=== PATIENT | female | born 1930 | race Caucasian/White ===

== ENCOUNTER 2017-05-08 08:26 | Inpatient (IN) | payer MEDICARE ==
[2017-05-08 09:29] LABS: % BASOPHILS 0.1 % (0.0-2.0); % EOSINOPHILS 2.8 % (0.0-5.0); % LYMPHOCYTES 16.4 % (20.0-50.0); % NEUTROPHILS 74.7 % (40.0-80.0); HEMOGLOBIN 11.4 gm/dL (11.7-16.1); MEAN CORPUSCULAR HGB CONC 32.7 pg (28.0-36.0); MEAN PLATELET VOLUME 8.2 fl; NEUTROPHILE ABSOLUTE 5.7 Th/cmm (1.8-8.0); PLATELET COUNT 395 Th/cmm (150-400); RED BLOOD COUNT 3.68 Mil/cmm (3.80-5.20); RED CELL DISTRIBUTION WIDTH 13.9 % (11.5-20.0); WHITE BLOOD COUNT 7.5 Th/cmm (4.8-10.8)
--- NOTE | 2017-05-08 09:43 | Diagnostic Imaging Report ---
CHEST X-RAY: AP view INDICATION: Pre-op, shortness of breath COMPARISON: None FINDINGS: Patient is rotated. Chronic lung changes are seen with no focal consolidation or effusions. Heart size is normal. Atherosclerosis is noted. Degenerative changes of spine are noted. IMPRESSION: Chronic lung changes and COPD. No focal consolidation identified.
[2017-05-08 09:46] LABS: INR 1.02 (0.5-1.4); PROTHROMBIN TIME (TEST) 10.6 SECONDS (9.5-11.5)
[2017-05-08 09:47] VITALS: BP 142/95
[2017-05-08 09:48] LABS: ALKALINE PHOSPHATASE 95 U/L (34-104); ANION GAP 10.1 (7.0-16.0); BILIRUBIN,TOTAL 0.5 mg/dL (0.3-1.0); BUN - UREA NITROGEN 20 mg/dL (7-25); CALCIUM SERUM 9.7 mg/dL (8.6-10.3); CARBON DIOXIDE 25.7 mEq/L (21.0-31.0); CHLORIDE 105 mEq/L (98-107); CREATININE - SERUM 0.5 mg/dL (0.6-1.2); GLUCOSE 133 mg/dL (70-105); POTASSIUM SERUM 3.8 mEq/L (3.5-5.1); SGOT 15 U/L (13-39); SGPT/ALT 8 U/L (7-52); SODIUM SERUM 137 mEq/L (136-145)
[2017-05-08] MEDS ORDERED: Midazolam 1mg/ml 2 ml vial IV ONE (10:33)
[2017-05-08] MEDS ORDERED: fentaNYL Citrate 100 mcg/2mL Vial ONE (10:34)
[2017-05-08] MEDS ORDERED: Magnesium Hydroxide (MOM) 30 mL UDC PO PRN (11:09)
[2017-05-08] MEDS ORDERED: guaiFENesin 200 MG/10 ML UDC PO PRN ×2 (11:09→11:19)
[2017-05-08] MEDS ORDERED: Enoxaparin 40 mg/0.4 mL 0.4mL Syr SUBQ SCH (11:15)
--- NOTE | 2017-05-08 11:18 | History and Physical ---
History of Present Illness - HPI Chief Complaint: DIRECT ADMISSION FOR LEFT BREAST MASS/LEFT BREAST PAIN HPI: This is a 86 year old female resident of [facility] who is a direct admission for left breast and left breast pain. Patient is seen by surgeon for excision biopsy left breast mass with frozen section, possible left modified radical mastectomy. Patient currently in the OR at this time. Patient did not have any fevers, chills, chest pain at the snf. 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 Denies: No Pertinent Hx Psych: Denies: No Pertinent Hx Musculoskeletal: Denies: No Pertinent Hx Rheumatologic: Denies: No pertinent Hx Infectious Disease: Denies: No Pertinent Hx Renal/: Denies: No Pertinent Hx Endocrine: Report: Hypothyroidism Dermatology: Denies: No Pertinent Hx - Past Surgical History Past Surgical History: No pertinent Hx Family Medical History - Family Member Mother History Unknown: Yes (noncontributory) Ethnicity: Social History Smoke: No Alcohol: None Drugs: None Lives: Alf Health Maintenance Health Maintenance: Pneumococcal Vaccine - Medications Home Medications: Home Medication Medication Instructions Recorded Type Acetaminophen [Tylenol] 650 mg PO Q6HR PRN 04/23/17 History Ascorbic Acid [Vitamin C] 500 mg PO DAILY 04/23/17 History Docusate Sodium [Dok] 100 mg PO BID 04/23/17 History Ferrous Sulfate [Iron] 325 mg PO DAILY 04/23/17 History Levothyroxine [Synthroid] 0.088 mg PO QDAC 04/23/17 History Magnesium Hydroxide [Milk of 30 ml PO DAILY PRN 04/23/17 History Magnesia] Memantine [Namenda] 5 mg PO BID 04/23/17 History Multivitamin w/ Minerals 1 tab PO DAILY 04/23/17 History [Theragran M] Zinc Oxide 30 gm TP DAILY 04/23/17 History Acetaminophen [Tylenol] 650 mg PO Q4HR PRN tab 04/26/17 Rx Albuterol Nebulizer 2.5mg/3mL 2.5 mg IH Q2HR PRN each 04/26/17 Rx [Albuterol Neb UD*] Enoxaparin [Lovenox] 40 mg SUBQ Q12H syr 04/26/17 Rx Ipratropium Neb 0.5 mg/2.5 mL 0.5 mg IH Q2HR PRN each 04/26/17 Rx [Atrovent Neb 0.5MG/2.5ML] Multivitamin w/ Minerals 1 tab PO DAILY tab 04/26/17 Rx [Theragran M] Ondansetron HCl [Zofran*] 4 mg IV Q8H PRN vial 04/26/17 Rx guaiFENesin [Robitussin] 100 mg PO Q4H PRN udc 04/26/17 Rx - Allergies Allergies/Adverse Reactions: Allergies Allergy/AdvReac Type Severity Reaction Status Date / Time No Known Allergies Allergy Verified 04/23/17 11:30 Review of Systems - Review of Systems Constitutional: Denies: Fever, Chills Eyes: Denies: Pain ENT: Denies: Ear Pain, Ear Discharge, Nose Pain Respiratory: Denies: Cough, Dry, Shortness of Breath Cardiovascular: Denies: Chest Pain Gastrointestinal: Denies: Nausea, Vomiting Genitourinary: Denies: Dysuria Neurological: Denies: Weakness Physical Exam - Physical Exam HEENT: Report: Ears Nose Throat Within Normal Limits Neck: Report: WNL Cardiovascular Systems: Report: +s1/s2 noted, Regular, Rate and Rhythm Respiratory: Report: Clear to Auscultation of lung ospina Abdomen: Report: Non-tender to palpation Back: Report: Inspection of back is within normal limits. Extremities: Report: Non-tender to palpation. Skin: Report: Color of skin is within normal limits, Warm, Dry Neuro/Psych: Report: A+Ox3, No motor deficit, No sensory deficit - Lab Results All Lab Results last 24 hours: Laboratory Last Values WBC 7.5 Th/cmm (4.8-10.8) 05/08/17 09:20 RBC 3.68 Mil/cmm (3.80-5.20) L 05/08/17 09:20 Hgb 11.4 gm/dL (11.7-16.1) L 05/08/17 09:20 Hct 35.0 % (35.0-45.0) D 05/08/17 09:20 MCV 95.0 fl (81-100) 05/08/17 09:20 MCH 31.0 pg (27.0-31.0) 05/08/17 09:20 MCHC Differential 32.7 pg (28.0-36.0) 05/08/17 09:20 RDW 13.9 % (11.5-20.0) 05/08/17 09:20 Plt Count 395 Th/cmm (150-400) D 05/08/17 09:20 MPV 8.2 fl 05/08/17 09:20 Neutrophils % 74.7 % (40.0-80.0) 05/08/17 09:20 Lymphocytes % 16.4 % (20.0-50.0) L 05/08/17 09:20 Monocytes % 6.0 % (2.0-10.0) 05/08/17 09:20 Eosinophils % 2.8 % (0.0-5.0) 05/08/17 09:20 Basophils % 0.1 % (0.0-2.0) 05/08/17 09:20 PT 10.6 SECONDS (9.5-11.5) 05/08/17 09:20 INR 1.02 (0.5-1.4) 05/08/17 09:20 PTT (Actin FS) 26.5 SECONDS (26.0-38.0) 05/08/17 09:20 Sodium 137 mEq/L (136-145) 05/08/17 09:20 Potassium 3.8 mEq/L (3.5-5.1) 05/08/17 09:20 Chloride 105 mEq/L (98-107) 05/08/17 09:20 Carbon Dioxide 25.7 mEq/L (21.0-31.0) 05/08/17 09:20 Anion Gap 10.1 (7.0-16.0) 05/08/17 09:20 BUN 20 mg/dL (7-25) 05/08/17 09:20 Creatinine 0.5 mg/dL (0.6-1.2) L 05/08/17 09:20 Est GFR ( Amer) TNP 05/08/17 09:20 Est GFR (Non-Af Amer) TNP 05/08/17 09:20 BUN/Creatinine Ratio 40.0 05/08/17 09:20 Glucose 133 mg/dL (70-105) H 05/08/17 09:20 Calcium 9.7 mg/dL (8.6-10.3) 05/08/17 09:20 Total Bilirubin 0.5 mg/dL (0.3-1.0) 05/08/17 09:20 AST 15 U/L (13-39) 05/08/17 09:20 ALT 8 U/L (7-52) 05/08/17 09:20 Alkaline Phosphatase 95 U/L (34-104) 05/08/17 09:20 Total Protein 8.2 gm/dL (6.0-8.3) 05/08/17 09:20 Albumin 4.0 gm/dL (3.7-5.3) 05/08/17 09:20 Globulin 4.2 gm/dL 05/08/17 09:20 Albumin/Globulin Ratio 1.0 (1.0-1.8) 05/08/17 09:20 Laboratory Results - last 24 hr 05/08/17 05/08/17 05/08/17 09:20 09:20 09:20 WBC 7.5 RBC 3.68 L Hgb 11.4 L Hct 35.0 D MCV 95.0 MCH 31.0 MCHC Differential 32.7 RDW 13.9 Plt Count 395 D MPV 8.2 Neutrophils % 74.7 Lymphocytes % 16.4 L Monocytes % 6.0 Eosinophils % 2.8 Basophils % 0.1 PT 10.6 INR 1.02 PTT (Actin FS) 26.5 Sodium 137 Potassium 3.8 Chloride 105 Carbon Dioxide 25.7 Anion Gap 10.1 BUN 20 Creatinine 0.5 L Est GFR ( Amer) TNP Est GFR (Non-Af Amer) TNP BUN/Creatinine Ratio 40.0 Glucose 133 H Calcium 9.7 Total Bilirubin 0.5 AST 15 ALT 8 Alkaline Phosphatase 95 Total Protein 8.2 Albumin 4.0 Globulin 4.2 Albumin/Globulin Ratio 1.0 - Assessment Assessment: LEFT BREAST MASS LEFT BREAST PAIN DYSPHAGIA HYPOTHYROIDISM PROTEIN CALORIE MALNUTRITION CACHEXIA ALZHEIMER'S - Plan Plan: Excision biopsy left breast mass with frozen section, possible left modified radical mastectomy SURGICAL CONSULT pain mgmt AM LABS IVF FOR HYDRATION WILL MONITOR PATIENT CLOSELY
[2017-05-08] MEDS ORDERED: D5-0.45NS 1,000 ML IV SCH (11:30)
--- NOTE | 2017-05-08 11:30 | Operative Report ---
Operative Report - Surgery Date of Surgery:: 05/08/17 Procedure:: left modified radical mastectomy Indication for procedure:: hard breast mass, suspicious for malignancy of mammogram and ultrasound Procedure consent:: CA left breast Anesthesia:: Anesthesiologist: Anesthesia: Preoperative diagnosis:: CAleft breast Postoperative diagnosis:: same Description of Procedure:: The patient was given general anesthesia. The left chest and axilla were prepped with Betadine and draped. An elliptical incision was made centering around the large left breast mass. The anterior and posterior flaps were developed excising all breast tissue. This dissection was carried upwards to the axillar, expossing the axillary vessels. Large, hard nodes were palpated and these were taken down completely with preservation of thoraco-dorsal nerve. Vessels were clipped. The whole specimen was sent for frozen section and this proved to be malignant. The incision was closed with SETH drain, utilizing 0 Vicryl for the subcutaneous tissue and 4-0 Vicryl subcuticularly. Sterile dressings were applied. The patient tolerated the procedure well. Recommendations:: Oncology consult
[2017-05-08] MEDS ORDERED: Meperidine 25 mg/mL 1mL Syr IVP PRN (12:04)
[2017-05-08] MEDS ORDERED: Lactated Ringer 1,000 ML IV SCH (12:15)
[2017-05-08] MEDS ORDERED: Meperidine 25 mg/mL 1mL Syr ONE (12:35)
[2017-05-08] MEDS ORDERED: Ipratropium Neb 0.5 mg/2.5 mL UD IH SCH (13:00)
[2017-05-08] MEDS: Albuterol Nebulizer 2.5mg/3mL IH SCH ×2 (13:27→13:28)
[2017-05-08] MEDS ORDERED: Morphine Sulfate 2 mg/mL 1mL Syr IVP PRN (14:50)
[2017-05-08] MEDS: Morphine Sulfate 4 mg/mL 1mL Syr IV PRN ×2 (16:41→23:17)
[2017-05-08] MEDS: D5-0.45NS 1,000 ML IV SCH (16:42)
[2017-05-08] MEDS: Hydrocodone/APAP 10 mg/325 mg Tab PO PRN (18:20)
[2017-05-08] MEDS: Albuterol Nebulizer 2.5mg/3mL HHN SCH (19:23)
[2017-05-08] MEDS: Ipratropium Neb 0.5 mg/2.5 mL UD HHN SCH (19:23)
[2017-05-09] MEDS: D5-0.45NS 1,000 ML IV SCH ×3 (03:36→23:10)
[2017-05-09] MEDS: Morphine Sulfate 4 mg/mL 1mL Syr IV PRN ×4 (05:06→23:07)
[2017-05-09] MEDS: Albuterol Nebulizer 2.5mg/3mL HHN SCH ×4 (06:38→19:56)
[2017-05-09] MEDS: Ipratropium Neb 0.5 mg/2.5 mL UD HHN SCH ×4 (06:39→19:56)
[2017-05-09] MEDS: Levothyroxine 0.088 Mg Tab PO SCH (06:52)
[2017-05-09 07:14] LABS: ANION GAP 7.2 (7.0-16.0); BUN - UREA NITROGEN 14 mg/dL (7-25); CARBON DIOXIDE 27.8 mEq/L (21.0-31.0); CHLORIDE 105 mEq/L (98-107); CREATININE - SERUM 0.4 mg/dL (0.6-1.2); GLUCOSE 122 mg/dL (70-105); SODIUM SERUM 136 mEq/L (136-145)
[2017-05-09 07:33] LABS: % BASOPHILS 0.6 % (0.0-2.0); % LYMPHOCYTES 14.8 % (20.0-50.0); % NEUTROPHILS 73.6 % (40.0-80.0); HEMATOCRIT 30.2 % (35.0-45.0); HEMOGLOBIN 10.3 gm/dL (11.7-16.1); MEAN CELL VOLUME 93.9 fl (81-100); MEAN CORPUSCULAR HEMOGLOBIN 32.1 pg (27.0-31.0); MEAN CORPUSCULAR HGB CONC 34.2 pg (28.0-36.0); MEAN PLATELET VOLUME 8.5 fl; NEUTROPHILE ABSOLUTE 6.1 Th/cmm (1.8-8.0); PLATELET COUNT 358 Th/cmm (150-400); RED BLOOD COUNT 3.22 Mil/cmm (3.80-5.20); RED CELL DISTRIBUTION WIDTH 14.4 % (11.5-20.0); WHITE BLOOD COUNT 8.5 Th/cmm (4.8-10.8)
[2017-05-09] MEDS: Multivitamin w/ Minerals Tab PO SCH (08:42)
[2017-05-09] MEDS: Ferrous Sulfate 325 MG TAB PO SCH (08:42)
[2017-05-09] MEDS: Zinc Oxide Ointment 60 gm TP SCH (09:00)
[2017-05-09] MEDS ORDERED: ZINC OXIDE 30 GM TP SCH (09:00)
[2017-05-09] MEDS ORDERED: Pneumococcal Vaccine 0.5 mL Vial IM ONE (10:00)
--- NOTE | 2017-05-09 12:32 | General Progress Note ---
Subjective - Review of Systems Service Date: 05/09/17 Events since last encounter: labs noted SETH drain 150 cc overnight Objective - Results Result Diagrams: 05/09/17 06:43 05/09/17 06:43 Recent Labs: Laboratory Last Values WBC 8.5 Th/cmm (4.8-10.8) 05/09/17 06:43 RBC 3.22 Mil/cmm (3.80-5.20) L 05/09/17 06:43 Hgb 10.3 gm/dL (11.7-16.1) L 05/09/17 06:43 Hct 30.2 % (35.0-45.0) L D 05/09/17 06:43 MCV 93.9 fl (81-100) 05/09/17 06:43 MCH 32.1 pg (27.0-31.0) H 05/09/17 06:43 MCHC Differential 34.2 pg (28.0-36.0) 05/09/17 06:43 RDW 14.4 % (11.5-20.0) 05/09/17 06:43 Plt Count 358 Th/cmm (150-400) 05/09/17 06:43 MPV 8.5 fl 05/09/17 06:43 Neutrophils % 73.6 % (40.0-80.0) 05/09/17 06:43 Lymphocytes % 14.8 % (20.0-50.0) L 05/09/17 06:43 Monocytes % 9.0 % (2.0-10.0) 05/09/17 06:43 Eosinophils % 2.0 % (0.0-5.0) 05/09/17 06:43 Basophils % 0.6 % (0.0-2.0) 05/09/17 06:43 PT 10.6 SECONDS (9.5-11.5) 05/08/17 09:20 INR 1.02 (0.5-1.4) 05/08/17 09:20 PTT (Actin FS) 26.5 SECONDS (26.0-38.0) 05/08/17 09:20 Sodium 136 mEq/L (136-145) 05/09/17 06:43 Potassium 4.0 mEq/L (3.5-5.1) 05/09/17 06:43 Chloride 105 mEq/L (98-107) 05/09/17 06:43 Carbon Dioxide 27.8 mEq/L (21.0-31.0) 05/09/17 06:43 Anion Gap 7.2 (7.0-16.0) 05/09/17 06:43 BUN 14 mg/dL (7-25) 05/09/17 06:43 Creatinine 0.4 mg/dL (0.6-1.2) L 05/09/17 06:43 Est GFR ( Amer) TNP 05/09/17 06:43 Est GFR (Non-Af Amer) TNP 05/09/17 06:43 BUN/Creatinine Ratio 35.0 05/09/17 06:43 Glucose 122 mg/dL (70-105) H 05/09/17 06:43 Calcium 9.0 mg/dL (8.6-10.3) 05/09/17 06:43 Total Bilirubin 0.5 mg/dL (0.3-1.0) 05/08/17 09:20 AST 15 U/L (13-39) 05/08/17 09:20 ALT 8 U/L (7-52) 05/08/17 09:20 Alkaline Phosphatase 95 U/L (34-104) 05/08/17 09:20 Total Protein 8.2 gm/dL (6.0-8.3) 05/08/17 09:20 Albumin 4.0 gm/dL (3.7-5.3) 05/08/17 09:20 Globulin 4.2 gm/dL 05/08/17 09:20 Albumin/Globulin Ratio 1.0 (1.0-1.8) 05/08/17 09:20 - Physical Exam Vitals and I&O: Vital Signs Temp 97.5 F 05/09/17 12:11 Pulse 110 05/09/17 12:11 Resp 17 05/09/17 12:11 BP 127/98 05/09/17 12:11 Pulse Ox 98 05/09/17 12:11 Intake & Output 05/08/17 05/09/17 05/09/17 18:59 06:59 18:59 Intake Total 0 952 240 Balance 0 952 240 Weight (lbs) 48.988 kg 47.718 kg 47.718 kg Intake: Intake, IV Amount 872 D5-0.45NS 1,000 ml @ 80 872 mls/hr IV .[id number] [facility] Rx #:[id number] Oral 0 80 240 Other: # Voids 1 2 2 # Bowel Movements 0 Active Medications: Current Medications Acetaminophen (Tylenol) 650 mg PO Q4HR PRN PRN Reason: Pain Or Fever above 101 Stop: 07/07/17 11:18 Acetaminophen/Hydrocodone Bitart ([place] 10 Mg/325 Mg) 1 tab PO Q4H PRN PRN Reason: Pain Stop: 07/07/17 11:22 Last Admin: 05/08/17 18:20 Dose: 1 tab Albuterol Sulfate (Albuterol 2.5mg/3ml Neb Ud) 2.5 mg HHN QIDRT [facility] Stop: 07/07/17 18:59 Last Admin: 05/09/17 10:42 Dose: 2.5 mg Ascorbic Acid (Vitamin C) 500 mg PO DAILY [facility] Stop: 07/08/17 08:59 Last Admin: 05/09/17 08:42 Dose: 500 mg Diphenhydramine HCl (Benadryl 50 Mg/Ml) 25 mg IVP Q6HR PRN PRN Reason: Itching Stop: 07/08/17 09:29 Docusate Sodium (Colace) 100 mg PO BID [facility] Stop: 07/07/17 16:59 Last Admin: 05/08/17 18:20 Dose: Not Given Enoxaparin Sodium (Lovenox) 40 mg SUBQ Q12H [facility] Stop: 07/08/17 17:59 Ferrous Sulfate (Iron) 325 mg PO DAILY [facility] Stop: 07/08/17 08:59 Last Admin: 05/09/17 08:42 Dose: 325 mg Guaifenesin (Robitussin) 100 mg PO Q4H PRN PRN Reason: Cough or Congestion Stop: 07/07/17 11:18 Dextrose/Sodium Chloride (D5-0.45ns) 1,000 mls @ 80 mls/hr IV .[id number] [facility] Stop: 07/07/17 11:29 Last Admin: 05/09/17 03:36 Dose: 80 mls/hr Ipratropium [place] (Atrovent Neb 0.5mg/2.5ml) 0.5 mg HHN QIDRT [facility] Stop: 07/07/17 18:59 Last Admin: 05/09/17 10:42 Dose: 0.5 mg Levothyroxine Sodium (Synthroid) 0.088 mg PO QDAC [facility] Stop: 07/08/17 07:29 Last Admin: 05/09/17 06:52 Dose: 0.088 mg Magnesium Hydroxide (Milk Of Magnesia) 30 ml PO DAILY PRN PRN Reason: Constipation Stop: 07/07/17 11:08 Memantine (Namenda) 5 mg PO BID [facility] Stop: 07/07/17 16:59 Last Admin: 05/09/17 08:42 Dose: 5 mg Morphine Sulfate (Morphine) 2 mg IV Q4H PRN PRN Reason: Severe Pain Stop: 07/07/17 16:19 Last Admin: 05/09/17 08:41 Dose: 2 mg Ondansetron HCl (Zofran) 4 mg IV Q8H PRN PRN Reason: Nausea / Vomiting Stop: 07/07/17 11:18 Petrolatum (Zinc Oxide) 1 appl TP DAILY [facility] Stop: 07/07/17 16:59 - Procedures Procedures: Procedures Procedure Code Date EXCISION OF LEFT AXILLARY LYMPHATIC, OPEN APPROACH, DIAGN [id number] 05/08/17 [place] [address] 05/08/17 RESECTION OF LEFT BREAST, OPEN APPROACH [id number] 05/08/17 Assessment/Plan - Problem List Patient Problems: All Active Problems POOR ORAL INTAKE WITH MUSCLE WEAKNESS (Acute)
--- NOTE | 2017-05-09 12:36 | Internal Medicine Prog Note ---
Internal Medicine Subjective - Subjective Service Date: 05/09/17 Patient seen and examined:: with staff Patient is:: awake, confused Per staff patient has:: no adverse event Internal Medicine Objective - Results Result Diagrams: 05/09/17 06:43 05/09/17 06:43 Recent Labs: Laboratory Last Values WBC 8.5 Th/cmm (4.8-10.8) 05/09/17 06:43 RBC 3.22 Mil/cmm (3.80-5.20) L 05/09/17 06:43 Hgb 10.3 gm/dL (11.7-16.1) L 05/09/17 06:43 Hct 30.2 % (35.0-45.0) L D 05/09/17 06:43 MCV 93.9 fl (81-100) 05/09/17 06:43 MCH 32.1 pg (27.0-31.0) H 05/09/17 06:43 MCHC Differential 34.2 pg (28.0-36.0) 05/09/17 06:43 RDW 14.4 % (11.5-20.0) 05/09/17 06:43 Plt Count 358 Th/cmm (150-400) 05/09/17 06:43 MPV 8.5 fl 05/09/17 06:43 Neutrophils % 73.6 % (40.0-80.0) 05/09/17 06:43 Lymphocytes % 14.8 % (20.0-50.0) L 05/09/17 06:43 Monocytes % 9.0 % (2.0-10.0) 05/09/17 06:43 Eosinophils % 2.0 % (0.0-5.0) 05/09/17 06:43 Basophils % 0.6 % (0.0-2.0) 05/09/17 06:43 PT 10.6 SECONDS (9.5-11.5) 05/08/17 09:20 INR 1.02 (0.5-1.4) 05/08/17 09:20 PTT (Actin FS) 26.5 SECONDS (26.0-38.0) 05/08/17 09:20 Sodium 136 mEq/L (136-145) 05/09/17 06:43 Potassium 4.0 mEq/L (3.5-5.1) 05/09/17 06:43 Chloride 105 mEq/L (98-107) 05/09/17 06:43 Carbon Dioxide 27.8 mEq/L (21.0-31.0) 05/09/17 06:43 Anion Gap 7.2 (7.0-16.0) 05/09/17 06:43 BUN 14 mg/dL (7-25) 05/09/17 06:43 Creatinine 0.4 mg/dL (0.6-1.2) L 05/09/17 06:43 Est GFR ( Amer) TNP 05/09/17 06:43 Est GFR (Non-Af Amer) TNP 05/09/17 06:43 BUN/Creatinine Ratio 35.0 05/09/17 06:43 Glucose 122 mg/dL (70-105) H 05/09/17 06:43 Calcium 9.0 mg/dL (8.6-10.3) 05/09/17 06:43 Total Bilirubin 0.5 mg/dL (0.3-1.0) 05/08/17 09:20 AST 15 U/L (13-39) 05/08/17 09:20 ALT 8 U/L (7-52) 05/08/17 09:20 Alkaline Phosphatase 95 U/L (34-104) 05/08/17 09:20 Total Protein 8.2 gm/dL (6.0-8.3) 05/08/17 09:20 Albumin 4.0 gm/dL (3.7-5.3) 05/08/17 09:20 Globulin 4.2 gm/dL 05/08/17 09:20 Albumin/Globulin Ratio 1.0 (1.0-1.8) 05/08/17 09:20 - Physical Exam Vitals and I&O: Vital Signs Temp 97.5 F 05/09/17 12:11 Pulse 110 05/09/17 12:11 Resp 17 05/09/17 12:11 BP 127/98 05/09/17 12:11 Pulse Ox 98 05/09/17 12:11 Intake & Output 05/08/17 05/09/17 05/09/17 18:59 06:59 18:59 Intake Total 0 952 240 Balance 0 952 240 Weight (lbs) 108 lb 105 lb 3.2 oz 105 lb 3.2 oz Intake: Intake, IV Amount 872 D5-0.45NS 1,000 ml @ 80 872 mls/hr IV .[id number] [facility] Rx #:[id number] Oral 0 80 240 Other: # Voids 1 2 2 # Bowel Movements 0 Active Medications: Current Medications Acetaminophen (Tylenol) 650 mg PO Q4HR PRN PRN Reason: Pain Or Fever above 101 Stop: 07/07/17 11:18 Acetaminophen/Hydrocodone Bitart ([place] 10 Mg/325 Mg) 1 tab PO Q4H PRN PRN Reason: Pain Stop: 07/07/17 11:22 Last Admin: 05/08/17 18:20 Dose: 1 tab Albuterol Sulfate (Albuterol 2.5mg/3ml Neb Ud) 2.5 mg HHN QIDRT [facility] Stop: 07/07/17 18:59 Last Admin: 05/09/17 10:42 Dose: 2.5 mg Ascorbic Acid (Vitamin C) 500 mg PO DAILY [facility] Stop: 07/08/17 08:59 Last Admin: 05/09/17 08:42 Dose: 500 mg Diphenhydramine HCl (Benadryl 50 Mg/Ml) 25 mg IVP Q6HR PRN PRN Reason: Itching Stop: 07/08/17 09:29 Docusate Sodium (Colace) 100 mg PO BID [facility] Stop: 07/07/17 16:59 Last Admin: 05/08/17 18:20 Dose: Not Given Enoxaparin Sodium (Lovenox) 40 mg SUBQ Q12H [facility] Stop: 07/08/17 17:59 Ferrous Sulfate (Iron) 325 mg PO DAILY [facility] Stop: 07/08/17 08:59 Last Admin: 05/09/17 08:42 Dose: 325 mg Guaifenesin (Robitussin) 100 mg PO Q4H PRN PRN Reason: Cough or Congestion Stop: 07/07/17 11:18 Dextrose/Sodium Chloride (D5-0.45ns) 1,000 mls @ 80 mls/hr IV .[id number] [facility] Stop: 07/07/17 11:29 Last Admin: 05/09/17 03:36 Dose: 80 mls/hr Ipratropium [place] (Atrovent Neb 0.5mg/2.5ml) 0.5 mg HHN QIDRT [facility] Stop: 07/07/17 18:59 Last Admin: 05/09/17 10:42 Dose: 0.5 mg Levothyroxine Sodium (Synthroid) 0.088 mg PO QDAC [facility] Stop: 07/08/17 07:29 Last Admin: 05/09/17 06:52 Dose: 0.088 mg Magnesium Hydroxide (Milk Of Magnesia) 30 ml PO DAILY PRN PRN Reason: Constipation Stop: 07/07/17 11:08 Memantine (Namenda) 5 mg PO BID [facility] Stop: 07/07/17 16:59 Last Admin: 05/09/17 08:42 Dose: 5 mg Morphine Sulfate (Morphine) 2 mg IV Q4H PRN PRN Reason: Severe Pain Stop: 07/07/17 16:19 Last Admin: 05/09/17 08:41 Dose: 2 mg Ondansetron HCl (Zofran) 4 mg IV Q8H PRN PRN Reason: Nausea / Vomiting Stop: 07/07/17 11:18 Petrolatum (Zinc Oxide) 1 appl TP DAILY [facility] Stop: 07/07/17 16:59 General: weak, alert, other (confused) HEENT: NC/AT, PERRLA Neck: Supple Lungs: CTAB Cardiovascular: RRR, Normal S1, Normal S2 Abdomen: soft, non-distended, positive bowel sound Extremities: clear Neurological: no change - Procedures Procedures: Procedures Procedure Code Date EXCISION OF LEFT AXILLARY LYMPHATIC, OPEN APPROACH, DIAGN [id number] 05/08/17 [place] [address] 05/08/17 RESECTION OF LEFT BREAST, OPEN APPROACH [id number] 05/08/17 Internal Medicine Assmt/Plan - Assessment Assessment: LEFT BREAST MASS s/p left modified radical mastectomy LEFT BREAST PAIN DYSPHAGIA HYPOTHYROIDISM PROTEIN CALORIE MALNUTRITION CACHEXIA ALZHEIMER'S - Plan Plan: monitor j/p drain pain mgmt AM LABS IVF FOR HYDRATION continue current plan of care
[2017-05-09] MEDS: Hydrocodone/APAP 10 mg/325 mg Tab PO PRN (17:30)
[2017-05-10] MEDS: Levothyroxine 0.088 Mg Tab PO SCH (06:38)
[2017-05-10] MEDS: Enoxaparin 40 mg/0.4 mL 0.4mL Syr SUBQ SCH ×2 (06:39→17:00)
[2017-05-10] MEDS: Albuterol Nebulizer 2.5mg/3mL HHN SCH ×4 (06:55→19:01)
[2017-05-10] MEDS: Ipratropium Neb 0.5 mg/2.5 mL UD HHN SCH ×4 (06:55→19:00)
[2017-05-10 07:46] LABS: % BASOPHILS 0.6 % (0.0-2.0); % EOSINOPHILS 2.9 % (0.0-5.0); % LYMPHOCYTES 23.7 % (20.0-50.0); % MONOCYTES 8.9 % (2.0-10.0); % NEUTROPHILS 63.9 % (40.0-80.0); HEMOGLOBIN 11.3 gm/dL (11.7-16.1); MEAN CELL VOLUME 94.8 fl (81-100); MEAN CORPUSCULAR HEMOGLOBIN 32.1 pg (27.0-31.0); MEAN CORPUSCULAR HGB CONC 33.9 pg (28.0-36.0); MEAN PLATELET VOLUME 7.9 fl; NEUTROPHILE ABSOLUTE 4.7 Th/cmm (1.8-8.0); PLATELET COUNT 346 Th/cmm (150-400); RED BLOOD COUNT 3.51 Mil/cmm (3.80-5.20); RED CELL DISTRIBUTION WIDTH 13.7 % (11.5-20.0); WHITE BLOOD COUNT 7.4 Th/cmm (4.8-10.8)
[2017-05-10 07:50] LABS: HEMATOCRIT 33.3 % (35.0-45.0)
[2017-05-10 08:20] LABS: ANION GAP 6.5 (7.0-16.0); CARBON DIOXIDE 28.5 mEq/L (21.0-31.0); CHLORIDE 104 mEq/L (98-107); SODIUM SERUM 135 mEq/L (136-145)
[2017-05-10 08:21] LABS: BUN - UREA NITROGEN 10 mg/dL (7-25); CALCIUM SERUM 9.3 mg/dL (8.6-10.3); CREATININE - SERUM 0.5 mg/dL (0.6-1.2); GLUCOSE 116 mg/dL (70-105)
[2017-05-10] MEDS: Zinc Oxide Ointment 60 gm TP SCH (09:00)
[2017-05-10] MEDS: Ferrous Sulfate 325 MG TAB PO SCH (09:22)
[2017-05-10] MEDS: Multivitamin w/ Minerals Tab PO SCH (09:22)
--- NOTE | 2017-05-10 12:27 | General Progress Note ---
Subjective - Review of Systems Service Date: 05/10/17 Events since last encounter: SETH drainage 70 cc overnight incision is clean Objective - Results Result Diagrams: 05/10/17 07:32 05/10/17 07:32 Recent Labs: Laboratory Last Values WBC 7.4 Th/cmm (4.8-10.8) 05/10/17 07:32 RBC 3.51 Mil/cmm (3.80-5.20) L 05/10/17 07:32 Hgb 11.3 gm/dL (11.7-16.1) L 05/10/17 07:32 Hct 33.3 % (35.0-45.0) L D 05/10/17 07:32 MCV 94.8 fl (81-100) 05/10/17 07:32 MCH 32.1 pg (27.0-31.0) H 05/10/17 07:32 MCHC Differential 33.9 pg (28.0-36.0) 05/10/17 07:32 RDW 13.7 % (11.5-20.0) 05/10/17 07:32 Plt Count 346 Th/cmm (150-400) 05/10/17 07:32 MPV 7.9 fl 05/10/17 07:32 Neutrophils % 63.9 % (40.0-80.0) 05/10/17 07:32 Lymphocytes % 23.7 % (20.0-50.0) 05/10/17 07:32 Monocytes % 8.9 % (2.0-10.0) 05/10/17 07:32 Eosinophils % 2.9 % (0.0-5.0) 05/10/17 07:32 Basophils % 0.6 % (0.0-2.0) 05/10/17 07:32 PT 10.6 SECONDS (9.5-11.5) 05/08/17 09:20 INR 1.02 (0.5-1.4) 05/08/17 09:20 PTT (Actin FS) 26.5 SECONDS (26.0-38.0) 05/08/17 09:20 Sodium 135 mEq/L (136-145) L 05/10/17 07:32 Potassium 4.0 mEq/L (3.5-5.1) 05/10/17 07:32 Chloride 104 mEq/L (98-107) 05/10/17 07:32 Carbon Dioxide 28.5 mEq/L (21.0-31.0) 05/10/17 07:32 Anion Gap 6.5 (7.0-16.0) L 05/10/17 07:32 BUN 10 mg/dL (7-25) 05/10/17 07:32 Creatinine 0.5 mg/dL (0.6-1.2) L 05/10/17 07:32 Est GFR ( Amer) TNP 05/10/17 07:32 Est GFR (Non-Af Amer) TNP 05/10/17 07:32 BUN/Creatinine Ratio 20.0 05/10/17 07:32 Glucose 116 mg/dL (70-105) H 05/10/17 07:32 Calcium 9.3 mg/dL (8.6-10.3) 05/10/17 07:32 Total Bilirubin 0.5 mg/dL (0.3-1.0) 05/08/17 09:20 AST 15 U/L (13-39) 05/08/17 09:20 ALT 8 U/L (7-52) 05/08/17 09:20 Alkaline Phosphatase 95 U/L (34-104) 05/08/17 09:20 Total Protein 8.2 gm/dL (6.0-8.3) 05/08/17 09:20 Albumin 4.0 gm/dL (3.7-5.3) 05/08/17 09:20 Globulin 4.2 gm/dL 05/08/17 09:20 Albumin/Globulin Ratio 1.0 (1.0-1.8) 05/08/17 09:20 - Physical Exam Vitals and I&O: Vital Signs Temp 97.8 F 05/10/17 11:23 Pulse 85 05/10/17 11:30 Resp 16 05/10/17 11:30 BP 116/81 05/10/17 11:23 Pulse Ox 94 05/10/17 11:30 Intake & Output 05/09/17 05/10/17 05/10/17 18:59 06:59 18:59 Intake Total 240 442 Output Total 70 Balance 240 372 Weight (lbs) 47.718 kg 47.627 kg Intake: Intake, IV Amount 412 D5-0.45NS 1,000 ml @ 60 412 mls/hr IV .[id number] [facility] Rx #:[id number] Oral 240 30 Output: Other 70 Other: # Voids 2 3 Active Medications: Current Medications Acetaminophen (Tylenol) 650 mg PO Q4HR PRN PRN Reason: Pain Or Fever above 101 Stop: 07/07/17 11:18 Acetaminophen/Hydrocodone Bitart ([place] 10 Mg/325 Mg) 1 tab PO Q4H PRN PRN Reason: Pain Stop: 07/07/17 11:22 Last Admin: 05/09/17 17:30 Dose: 1 tab Albuterol Sulfate (Albuterol 2.5mg/3ml Neb Ud) 2.5 mg HHN QIDRT [facility] Stop: 07/07/17 18:59 Last Admin: 05/10/17 11:27 Dose: 2.5 mg Ascorbic Acid (Vitamin C) 500 mg PO DAILY [facility] Stop: 07/08/17 08:59 Last Admin: 05/10/17 09:22 Dose: 500 mg Diphenhydramine HCl (Benadryl 50 Mg/Ml) 25 mg IVP Q6HR PRN PRN Reason: Itching Stop: 07/08/17 09:29 Last Admin: 05/09/17 14:42 Dose: 25 mg Docusate Sodium (Colace) 100 mg PO BID [facility] Stop: 07/07/17 16:59 Last Admin: 05/10/17 09:22 Dose: 100 mg Enoxaparin Sodium (Lovenox) 40 mg SUBQ Q12H [facility] Stop: 07/08/17 17:59 Last Admin: 05/10/17 06:39 Dose: 40 mg Ferrous Sulfate (Iron) 325 mg PO DAILY [facility] Stop: 07/08/17 08:59 Last Admin: 05/10/17 09:22 Dose: 325 mg Guaifenesin (Robitussin) 100 mg PO Q4H PRN PRN Reason: Cough or Congestion Stop: 07/07/17 11:18 Dextrose/Sodium Chloride (D5-0.45ns) 1,000 mls @ 60 mls/hr IV .[id number] [facility] Stop: 07/07/17 11:29 Last Admin: 05/09/17 23:10 Dose: 60 mls/hr Ipratropium [place] (Atrovent Neb 0.5mg/2.5ml) 0.5 mg HHN QIDRT [facility] Stop: 07/07/17 18:59 Last Admin: 05/10/17 11:27 Dose: 0.5 mg Levothyroxine Sodium (Synthroid) 0.088 mg PO QDAC ALICIA Stop: 07/08/17 07:29 Last Admin: 05/10/17 06:38 Dose: 0.088 mg Magnesium Hydroxide (Milk Of Magnesia) 30 ml PO DAILY PRN PRN Reason: Constipation Stop: 07/07/17 11:08 Memantine (Namenda) 5 mg PO BID ALICIA Stop: 07/07/17 16:59 Last Admin: 05/10/17 09:22 Dose: 5 mg Morphine Sulfate (Morphine) 2 mg IV Q4H PRN PRN Reason: Severe Pain Stop: 07/07/17 16:19 Last Admin: 05/09/17 23:07 Dose: 2 mg Ondansetron HCl (Zofran) 4 mg IV Q8H PRN PRN Reason: Nausea / Vomiting Stop: 07/07/17 11:18 Petrolatum (Zinc Oxide) 1 appl TP DAILY ALICIA Stop: 07/07/17 16:59 Last Admin: 05/09/17 09:00 Dose: 1 appl Risperidone (Risperdal) 0.25 mg PO HS ALICIA PRN Reason: Protocol Stop: 07/08/17 20:59 - Procedures Procedures: Procedures Procedure Code Date EXCISION OF LEFT AXILLARY LYMPHATIC, OPEN APPROACH, DIAGN [id number] 05/08/17 MAST MOD RAD 65731 05/08/17 RESECTION OF LEFT BREAST, OPEN APPROACH [id number] 05/08/17 Assessment/Plan - Problem List Patient Problems: All Active Problems POOR ORAL INTAKE WITH MUSCLE WEAKNESS (Acute)
[2017-05-10] MEDS: Morphine Sulfate 4 mg/mL 1mL Syr IV PRN (13:44)
[2017-05-10] MEDS ORDERED: Hydrocodone/APAP 5mg/325mg Tab PO PRN (13:52)
--- NOTE | 2017-05-10 13:55 | Internal Medicine Prog Note ---
Internal Medicine Subjective - Subjective Patient seen and examined:: with staff, chart reviewed Patient is:: awake, verbal, non-interactive, in bed, confused Patient Complaints of:: congestion, cough, LBP, unable to sleep Per staff patient has:: no adverse event, poor appetite, agitated, combative, noncompliant, confused, refusing care, refusing labs Internal Medicine Objective - Results Result Diagrams: 05/10/17 07:32 05/10/17 07:32 Recent Labs: Laboratory Last Values WBC 7.4 Th/cmm (4.8-10.8) 05/10/17 07:32 RBC 3.51 Mil/cmm (3.80-5.20) L 05/10/17 07:32 Hgb 11.3 gm/dL (11.7-16.1) L 05/10/17 07:32 Hct 33.3 % (35.0-45.0) L D 05/10/17 07:32 MCV 94.8 fl (81-100) 05/10/17 07:32 MCH 32.1 pg (27.0-31.0) H 05/10/17 07:32 MCHC Differential 33.9 pg (28.0-36.0) 05/10/17 07:32 RDW 13.7 % (11.5-20.0) 05/10/17 07:32 Plt Count 346 Th/cmm (150-400) 05/10/17 07:32 MPV 7.9 fl 05/10/17 07:32 Neutrophils % 63.9 % (40.0-80.0) 05/10/17 07:32 Lymphocytes % 23.7 % (20.0-50.0) 05/10/17 07:32 Monocytes % 8.9 % (2.0-10.0) 05/10/17 07:32 Eosinophils % 2.9 % (0.0-5.0) 05/10/17 07:32 Basophils % 0.6 % (0.0-2.0) 05/10/17 07:32 PT 10.6 SECONDS (9.5-11.5) 05/08/17 09:20 INR 1.02 (0.5-1.4) 05/08/17 09:20 PTT (Actin FS) 26.5 SECONDS (26.0-38.0) 05/08/17 09:20 Sodium 135 mEq/L (136-145) L 05/10/17 07:32 Potassium 4.0 mEq/L (3.5-5.1) 05/10/17 07:32 Chloride 104 mEq/L (98-107) 05/10/17 07:32 Carbon Dioxide 28.5 mEq/L (21.0-31.0) 05/10/17 07:32 Anion Gap 6.5 (7.0-16.0) L 05/10/17 07:32 BUN 10 mg/dL (7-25) 05/10/17 07:32 Creatinine 0.5 mg/dL (0.6-1.2) L 05/10/17 07:32 Est GFR ( Amer) TNP 05/10/17 07:32 Est GFR (Non-Af Amer) TNP 05/10/17 07:32 BUN/Creatinine Ratio 20.0 05/10/17 07:32 Glucose 116 mg/dL (70-105) H 05/10/17 07:32 Calcium 9.3 mg/dL (8.6-10.3) 05/10/17 07:32 Total Bilirubin 0.5 mg/dL (0.3-1.0) 05/08/17 09:20 AST 15 U/L (13-39) 05/08/17 09:20 ALT 8 U/L (7-52) 05/08/17 09:20 Alkaline Phosphatase 95 U/L (34-104) 05/08/17 09:20 Total Protein 8.2 gm/dL (6.0-8.3) 05/08/17 09:20 Albumin 4.0 gm/dL (3.7-5.3) 05/08/17 09:20 Globulin 4.2 gm/dL 05/08/17 09:20 Albumin/Globulin Ratio 1.0 (1.0-1.8) 05/08/17 09:20 - Physical Exam Vitals and I&O: Vital Signs Temp 97.8 F 05/10/17 11:23 Pulse 85 05/10/17 11:30 Resp 16 05/10/17 11:30 BP 116/81 05/10/17 11:23 Pulse Ox 94 05/10/17 11:30 Intake & Output 05/09/17 05/10/17 05/10/17 18:59 06:59 18:59 Intake Total 240 442 Output Total 70 Balance 240 372 Weight (lbs) 47.718 kg 47.627 kg Intake: Intake, IV Amount 412 D5-0.45NS 1,000 ml @ 60 412 mls/hr IV .[id number] [facility] Rx #:[id number] Oral 240 30 Output: Other 70 Other: # Voids 2 3 Active Medications: Current Medications Acetaminophen (Tylenol) 650 mg PO Q4HR PRN PRN Reason: Pain Or Fever above 101 Stop: 07/07/17 11:18 Acetaminophen/Hydrocodone Bitart ([place] 10 Mg/325 Mg) 1 tab PO Q4H PRN PRN Reason: Pain Stop: 07/07/17 11:22 Last Admin: 05/09/17 17:30 Dose: 1 tab Acetaminophen/Hydrocodone Bitart ([place] 5mg/325mg) 1 tab PO Q4H PRN PRN Reason: Pain (Severe) Stop: 07/09/17 13:51 Albuterol Sulfate (Albuterol 2.5mg/3ml Neb Ud) 2.5 mg HHN QIDRT [facility] Stop: 07/07/17 18:59 Last Admin: 05/10/17 11:27 Dose: 2.5 mg Ascorbic Acid (Vitamin C) 500 mg PO DAILY [facility] Stop: 07/08/17 08:59 Last Admin: 05/10/17 09:22 Dose: 500 mg Diphenhydramine HCl (Benadryl 50 Mg/Ml) 25 mg IVP Q6HR PRN PRN Reason: Itching Stop: 07/08/17 09:29 Last Admin: 05/09/17 14:42 Dose: 25 mg Docusate Sodium (Colace) 100 mg PO BID [facility] Stop: 07/07/17 16:59 Last Admin: 05/10/17 09:22 Dose: 100 mg Enoxaparin Sodium (Lovenox) 40 mg SUBQ Q12H [facility] Stop: 07/08/17 17:59 Last Admin: 05/10/17 06:39 Dose: 40 mg Ferrous Sulfate (Iron) 325 mg PO DAILY [facility] Stop: 07/08/17 08:59 Last Admin: 05/10/17 09:22 Dose: 325 mg Guaifenesin (Robitussin) 100 mg PO Q4H PRN PRN Reason: Cough or Congestion Stop: 07/07/17 11:18 Dextrose/Sodium Chloride (D5-0.45ns) 1,000 mls @ 60 mls/hr IV .[id number] [facility] Stop: 07/07/17 11:29 Last Admin: 05/09/17 23:10 Dose: 60 mls/hr Ipratropium [place] (Atrovent Neb 0.5mg/2.5ml) 0.5 mg HHN QIDRT [facility] Stop: 07/07/17 18:59 Last Admin: 05/10/17 11:27 Dose: 0.5 mg Levothyroxine Sodium (Synthroid) 0.088 mg PO QDAC [facility] Stop: 07/08/17 07:29 Last Admin: 05/10/17 06:38 Dose: 0.088 mg Magnesium Hydroxide (Milk Of Magnesia) 30 ml PO DAILY PRN PRN Reason: Constipation Stop: 07/07/17 11:08 Memantine (Namenda) 5 mg PO BID [facility] Stop: 07/07/17 16:59 Last Admin: 05/10/17 09:22 Dose: 5 mg Morphine Sulfate (Morphine) 2 mg IV Q4H PRN PRN Reason: Severe Pain Stop: 07/07/17 16:19 Last Admin: 05/09/17 23:07 Dose: 2 mg Ondansetron HCl (Zofran) 4 mg IV Q8H PRN PRN Reason: Nausea / Vomiting Stop: 07/07/17 11:18 Petrolatum (Zinc Oxide) 1 appl TP DAILY [facility] Stop: 07/07/17 16:59 Last Admin: 05/09/17 09:00 Dose: 1 appl Risperidone (Risperdal) 0.25 mg PO HS [facility] PRN Reason: Protocol Stop: 07/08/17 20:59 General: weak, alert, thin, other (confused) HEENT: NC/AT, PERRLA Neck: Supple Lungs: rales, ronchi, chest deformity present Cardiovascular: RRR, Normal S1, Normal S2 Abdomen: soft, non-distended, positive bowel sound Extremities: excoriation, contracture Neurological: no change, disorganized, unsteady, bedbound - Procedures Procedures: Procedures Procedure Code Date EXCISION OF LEFT AXILLARY LYMPHATIC, OPEN APPROACH, DIAGN 27J88TD 05/08/17 [place] [address] 05/08/17 RESECTION OF LEFT BREAST, OPEN APPROACH [id number] 05/08/17 Internal Medicine Assmt/Plan - Assessment Assessment: LEFT BREAST MASS cw ca LEFT BREAST PAIN DYSPHAGIA HYPOTHYROIDISM PROTEIN CALORIE MALNUTRITION CACHEXIA ALZHEIMER'S - Plan Plan: Excision biopsy left breast mass with frozen section, possible left modified radical mastectomy SURGICAL CONSULT pain mgmt AM LABS IVF FOR HYDRATION WILL MONITOR PATIENT CLOSELY - Plan Plan: see plan
--- NOTE | 2017-05-10 14:34 | Consultation ---
Consult Note - Consult Note Service Date: 05/10/17 Referring Physician: Sascha Chow Consult Note: PHYSICIAN Consultation Note: Date of Admission: 05/08/17 Purpose of Consultation: breast cancer Chief Complaint: History of Present Illness: Patient CAROL LEGGETT was admitted to [facility] with LT BREAST MASS & LT BREAST PAIN. 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 (05/08/17) ALZHEIMER'S DISEASE, UNSPECIFIED (05/08/17) UNSPECIFIED LUMP IN BREAST (05/08/17) DYSPHAGIA, UNSPECIFIED (05/08/17) CACHEXIA (05/08/17) BODY MASS INDEX (BMI) 19 OR LESS, ADULT (05/08/17) Allergies Allergy/AdvReac Type Severity Reaction Status Date / Time No Known Allergies Allergy Verified 04/23/17 11:30 Vital Signs Temp 97.8 F 05/10/17 11:23 Pulse 85 05/10/17 11:30 Resp 16 05/10/17 11:30 BP 116/81 05/10/17 11:23 Pulse Ox 94 05/10/17 11:30 Intake & Output 05/09/17 05/10/17 05/10/17 18:59 06:59 18:59 Intake Total 240 442 Output Total 70 Balance 240 372 Weight (lbs) 47.718 kg 47.627 kg Intake: Intake, IV Amount 412 D5-0.45NS 1,000 ml @ 60 412 mls/hr IV .[id number] [facility] Rx #:[id number] Oral 240 30 Output: Other 70 Other: # Voids 2 3 Laboratory Results - last 24 hr 05/10/17 05/10/17 07:32 07:32 WBC 7.4 RBC 3.51 L Hgb 11.3 L Hct 33.3 L D MCV 94.8 MCH 32.1 H MCHC Differential 33.9 RDW 13.7 Plt Count 346 MPV 7.9 Neutrophils % 63.9 Lymphocytes % 23.7 Monocytes % 8.9 Eosinophils % 2.9 Basophils % 0.6 Sodium 135 L Potassium 4.0 Chloride 104 Carbon Dioxide 28.5 Anion Gap 6.5 L BUN 10 Creatinine 0.5 L Est GFR ( Amer) TNP Est GFR (Non-Af Amer) TNP BUN/Creatinine Ratio 20.0 Glucose 116 H Calcium 9.3 Home Medication Medication Instructions Recorded Type Acetaminophen [Tylenol] 650 mg PO Q6HR PRN 04/23/17 History Ascorbic Acid [Vitamin C] 500 mg PO DAILY 04/23/17 History Docusate Sodium [Dok] 100 mg PO BID 04/23/17 History Ferrous Sulfate [Iron] 325 mg PO DAILY 04/23/17 History Levothyroxine [Synthroid] 0.088 mg PO QDAC 04/23/17 History Magnesium Hydroxide [Milk of 30 ml PO DAILY PRN 04/23/17 History Magnesia] Memantine [Namenda] 5 mg PO BID 04/23/17 History Multivitamin w/ Minerals 1 tab PO DAILY 04/23/17 History [Theragran M] Zinc Oxide 30 gm TP DAILY 04/23/17 History Acetaminophen [Tylenol] 650 mg PO Q4HR PRN tab 04/26/17 Rx Albuterol Nebulizer 2.5mg/3mL 2.5 mg IH Q2HR PRN each 04/26/17 Rx [Albuterol Neb UD*] Enoxaparin [Lovenox] 40 mg SUBQ Q12H syr 04/26/17 Rx Ipratropium Neb 0.5 mg/2.5 mL 0.5 mg IH Q2HR PRN each 04/26/17 Rx [Atrovent Neb 0.5MG/2.5ML] Multivitamin w/ Minerals 1 tab PO DAILY tab 04/26/17 Rx [Theragran M] Ondansetron HCl [Zofran*] 4 mg IV Q8H PRN vial 04/26/17 Rx guaiFENesin [Robitussin] 100 mg PO Q4H PRN udc 04/26/17 Rx Current Medications Generic Name Dose Route Start Last Admin Trade Name Freq PRN Reason Stop Dose Admin Acetaminophen 650 mg 05/08/17 11:19 Tylenol PO 07/07/17 11:18 Q4HR PRN Pain Or Fever above 101 Acetaminophen/Hydrocodone Bitart 1 tab 05/10/17 13:52 [place] 5mg/325mg PO 07/09/17 13:51 Q4H PRN Pain (Severe) Albuterol Sulfate 2.5 mg 05/08/17 19:00 05/10/17 11:27 Albuterol 2.5mg/3ml Neb Ud HHN 07/07/17 18:59 2.5 mg QIDRT [facility] Administration Ascorbic Acid 500 mg 05/09/17 09:00 05/10/17 09:22 Vitamin C PO 07/08/17 08:59 500 mg DAILY [facility] Administration Diphenhydramine HCl 25 mg 05/09/17 09:30 05/10/17 14:03 Benadryl 50 Mg/Ml IVP 07/08/17 09:29 25 mg Q6HR PRN Administration Itching Docusate Sodium 100 mg 05/08/17 17:00 05/10/17 09:22 Colace PO 07/07/17 16:59 100 mg BID [facility] Administration Enoxaparin Sodium 40 mg 05/09/17 18:00 05/10/17 06:39 Lovenox SUBQ 07/08/17 17:59 40 mg Q12H [facility] Administration Ferrous Sulfate 325 mg 05/09/17 09:00 05/10/17 09:22 Iron PO 07/08/17 08:59 325 mg DAILY [facility] Administration Guaifenesin 100 mg 05/08/17 11:19 Robitussin PO 07/07/17 11:18 Q4H PRN Cough or Congestion Dextrose/Sodium Chloride 1,000 mls @ 60 mls/hr 05/09/17 14:27 05/09/17 23:10 D5-0.45ns IV 07/07/17 11:29 60 mls/hr .[id number] [facility] Administration Ipratropium [place] 0.5 mg 05/08/17 19:00 05/10/17 11:27 Atrovent Neb 0.5mg/2.5ml HHN 07/07/17 18:59 0.5 mg QIDRT [facility] Administration Levothyroxine Sodium 0.088 mg 05/09/17 07:30 05/10/17 06:38 Synthroid PO 07/08/17 07:29 0.088 mg QDAC [facility] Administration Magnesium Hydroxide 30 ml 05/08/17 11:09 Milk Of Magnesia PO 07/07/17 11:08 DAILY PRN Constipation Memantine 5 mg 05/08/17 17:00 05/10/17 09:22 Namenda PO 07/07/17 16:59 5 mg BID [facility] Administration Morphine Sulfate 2 mg 05/08/17 16:20 05/10/17 13:44 Morphine IV 07/07/17 16:19 2 mg Q4H PRN Administration Severe Pain Ondansetron HCl 4 mg 05/08/17 11:19 Zofran IV 07/07/17 11:18 Q8H PRN Nausea / Vomiting Petrolatum 1 appl 05/08/17 17:00 05/09/17 09:00 Zinc Oxide TP 07/07/17 16:59 1 appl DAILY [facility] Administration Risperidone 0.25 mg 05/09/17 21:00 Risperdal PO 07/08/17 20:59 HS [facility] Protocol Review of Systems: A 12 point ROS was reviewed with the pertinent positive and negatives noted in the HPI. Social History Smoking Status Never smoker Drug Use No Alcohol Use No Family Medical History Family Medical History Start: 05/08/17 08: 56 Freq: ONCE Status: Active Document 05/08/17 08:56 [email or web address] (Rec: 05/08/17 13:09 [email or web address] [id number]) Family Medical History Mother History Unknown Yes Ethnicity Living Status Other Medical History PT BROTHER DENIES ANY HEALTH HISTORY Physical Exam: General: Alert and Oriented x3, No Acute Distress HEENT: EOMI Bilaterally, PERRLA Bilaterally, Head is normocephalic, atraumatic on inspection. Cardio: +S1/S2 Auscultated, RRR, no murmurs/rubs/gallops noted Respiratory: Clear to Auscultate Bilaterally. left breast mastectomy Abdominal: Soft, Nondistended, Nontender to palpation x 4 quadrants Genital/Urinary: Extremities: No Edema noted in the lower extremities Neurological: Cranial Nerves II-XII intact bilaterally, Gait Steady, No Focal Deficits noted. Assessment/Plan: * left breast INFILTERATING DUCTAL CA * S/P MASTECTOMY * AWAITING PATH FINAL REPORT * PSYCHOSIS * A. WENDY Hernandez, Jaylon Cuevas [id number]
[2017-05-10] MEDS: D5-0.45NS 1,000 ML IV SCH (20:42)
[2017-05-11] MEDS: Enoxaparin 40 mg/0.4 mL 0.4mL Syr SUBQ SCH (05:41)
[2017-05-11] MEDS: Levothyroxine 0.088 Mg Tab PO SCH (06:31)
[2017-05-11 06:33] LABS: % BASOPHILS 0.1 % (0.0-2.0); % LYMPHOCYTES 18.3 % (20.0-50.0); % MONOCYTES 9.3 % (2.0-10.0); % NEUTROPHILS 68.3 % (40.0-80.0); HEMATOCRIT 32.8 % (35.0-45.0); HEMOGLOBIN 10.8 gm/dL (11.7-16.1); MEAN CELL VOLUME 94.4 fl (81-100); MEAN CORPUSCULAR HEMOGLOBIN 31.2 pg (27.0-31.0); MEAN PLATELET VOLUME 8.1 fl; PLATELET COUNT 379 Th/cmm (150-400); RED BLOOD COUNT 3.47 Mil/cmm (3.80-5.20); RED CELL DISTRIBUTION WIDTH 13.6 % (11.5-20.0); WHITE BLOOD COUNT 7.4 Th/cmm (4.8-10.8)
[2017-05-11 06:42] LABS: ANION GAP 5.9 (7.0-16.0); BUN - UREA NITROGEN 8 mg/dL (7-25); CALCIUM SERUM 9.4 mg/dL (8.6-10.3); CARBON DIOXIDE 29.3 mEq/L (21.0-31.0); CHLORIDE 106 mEq/L (98-107); CREATININE - SERUM 0.5 mg/dL (0.6-1.2); GLUCOSE 105 mg/dL (70-105); POTASSIUM SERUM 4.2 mEq/L (3.5-5.1); SODIUM SERUM 137 mEq/L (136-145)
[2017-05-11] MEDS: Ipratropium Neb 0.5 mg/2.5 mL UD HHN SCH ×4 (07:30→19:30)
[2017-05-11] MEDS: Albuterol Nebulizer 2.5mg/3mL HHN SCH ×4 (07:30→19:30)
[2017-05-11] MEDS: Multivitamin w/ Minerals Tab PO SCH (09:57)
[2017-05-11] MEDS: Ferrous Sulfate 325 MG TAB PO SCH (09:58)
[2017-05-11] MEDS: Zinc Oxide Ointment 60 gm TP SCH (10:00)
--- NOTE | 2017-05-11 12:16 | General Progress Note ---
Subjective - Review of Systems Service Date: 05/11/17 Events since last encounter: overnight SETH drainage 50 cc, was 70 cc 24 hrs ago Objective - Results Result Diagrams: 05/11/17 06:12 05/11/17 06:12 Recent Labs: Laboratory Last Values WBC 7.4 Th/cmm (4.8-10.8) 05/11/17 06:12 RBC 3.47 Mil/cmm (3.80-5.20) L 05/11/17 06:12 Hgb 10.8 gm/dL (11.7-16.1) L 05/11/17 06:12 Hct 32.8 % (35.0-45.0) L 05/11/17 06:12 MCV 94.4 fl (81-100) 05/11/17 06:12 MCH 31.2 pg (27.0-31.0) H 05/11/17 06:12 MCHC Differential 33.0 pg (28.0-36.0) 05/11/17 06:12 RDW 13.6 % (11.5-20.0) 05/11/17 06:12 Plt Count 379 Th/cmm (150-400) 05/11/17 06:12 MPV 8.1 fl 05/11/17 06:12 Neutrophils % 68.3 % (40.0-80.0) 05/11/17 06:12 Lymphocytes % 18.3 % (20.0-50.0) L 05/11/17 06:12 Monocytes % 9.3 % (2.0-10.0) 05/11/17 06:12 Eosinophils % 4.0 % (0.0-5.0) 05/11/17 06:12 Basophils % 0.1 % (0.0-2.0) 05/11/17 06:12 PT 10.6 SECONDS (9.5-11.5) 05/08/17 09:20 INR 1.02 (0.5-1.4) 05/08/17 09:20 PTT (Actin FS) 26.5 SECONDS (26.0-38.0) 05/08/17 09:20 Sodium 137 mEq/L (136-145) 05/11/17 06:12 Potassium 4.2 mEq/L (3.5-5.1) 05/11/17 06:12 Chloride 106 mEq/L (98-107) 05/11/17 06:12 Carbon Dioxide 29.3 mEq/L (21.0-31.0) 05/11/17 06:12 Anion Gap 5.9 (7.0-16.0) L 05/11/17 06:12 BUN 8 mg/dL (7-25) 05/11/17 06:12 Creatinine 0.5 mg/dL (0.6-1.2) L 05/11/17 06:12 Est GFR ( Amer) TNP 05/11/17 06:12 Est GFR (Non-Af Amer) TNP 05/11/17 06:12 BUN/Creatinine Ratio 16.0 05/11/17 06:12 Glucose 105 mg/dL (70-105) 05/11/17 06:12 Calcium 9.4 mg/dL (8.6-10.3) 05/11/17 06:12 Total Bilirubin 0.5 mg/dL (0.3-1.0) 05/08/17 09:20 AST 15 U/L (13-39) 05/08/17 09:20 ALT 8 U/L (7-52) 05/08/17 09:20 Alkaline Phosphatase 95 U/L (34-104) 05/08/17 09:20 Ammonia 36 umol/L (16-53) 05/11/17 06:12 B-Natriuretic Peptide 197.0 pg/mL (5.0-100.0) H 05/11/17 06:12 Total Protein 8.2 gm/dL (6.0-8.3) 05/08/17 09:20 Albumin 4.0 gm/dL (3.7-5.3) 05/08/17 09:20 Globulin 4.2 gm/dL 05/08/17 09:20 Albumin/Globulin Ratio 1.0 (1.0-1.8) 05/08/17 09:20 - Physical Exam Vitals and I&O: Vital Signs Temp 97.0 F 05/11/17 04:00 Pulse 62 05/11/17 10:40 Resp 16 05/11/17 10:40 BP 122/70 05/11/17 04:00 Pulse Ox 97 05/11/17 10:40 Intake & Output 05/10/17 05/11/1717 18:59 06:59 18:59 Intake Total 1000 60 Output Total 20 Balance 1000 40 Weight (lbs) 46.72 kg Intake: Intake, IV Amount 1000 D5-0.45NS 1,000 ml @ 60 1000 mls/hr IV .[id number] [facility] Rx #:[id number] Oral 60 Output: Drainage 20 SETH DRAIN 20 Other: # Voids 3 # Bowel Movements 1 Active Medications: Current Medications Acetaminophen (Tylenol) 650 mg PO Q4HR PRN PRN Reason: Pain Or Fever above 101 Stop: 07/07/17 11:18 Last Admin: 05/10/17 20:42 Dose: 650 mg Acetaminophen/Hydrocodone Bitart ([place] 5mg/325mg) 1 tab PO Q4H PRN PRN Reason: Pain (Severe) Stop: 07/09/17 13:51 Albuterol Sulfate (Albuterol 2.5mg/3ml Neb Ud) 2.5 mg HHN QIDRT [facility] Stop: 07/07/17 18:59 Last Admin: 05/11/17 10:37 Dose: 2.5 mg Ascorbic Acid (Vitamin C) 500 mg PO DAILY [facility] Stop: 07/08/17 08:59 Last Admin: 05/11/17 09:58 Dose: 500 mg Diphenhydramine HCl (Benadryl 50 Mg/Ml) 25 mg IVP Q6HR PRN PRN Reason: Itching Stop: 07/08/17 09:29 Last Admin: 05/10/17 20:43 Dose: 25 mg Docusate Sodium (Colace) 100 mg PO BID [facility] Stop: 07/07/17 16:59 Last Admin: 05/11/17 09:57 Dose: 100 mg Enoxaparin Sodium (Lovenox) 40 mg SUBQ Q12H [facility] Stop: 07/08/17 17:59 Last Admin: 05/11/17 05:41 Dose: 40 mg Ferrous Sulfate (Iron) 325 mg PO DAILY [facility] Stop: 07/08/17 08:59 Last Admin: 05/11/17 09:58 Dose: 325 mg Guaifenesin (Robitussin) 100 mg PO Q4H PRN PRN Reason: Cough or Congestion Stop: 07/07/17 11:18 Dextrose/Sodium Chloride (D5-0.45ns) 1,000 mls @ 60 mls/hr IV .[id number] [facility] Stop: 07/07/17 11:29 Last Admin: 05/10/17 20:42 Dose: 60 mls/hr Ipratropium [place] (Atrovent Neb 0.5mg/2.5ml) 0.5 mg HHN QIDRT [facility] Stop: 07/07/17 18:59 Last Admin: 05/11/17 10:38 Dose: 0.5 mg Levothyroxine Sodium (Synthroid) 0.088 mg PO QDAC [facility] Stop: 07/08/17 07:29 Last Admin: 05/11/17 06:31 Dose: 0.088 mg Magnesium Hydroxide (Milk Of Magnesia) 30 ml PO DAILY PRN PRN Reason: Constipation Stop: 07/07/17 11:08 Memantine (Namenda) 5 mg PO BID [facility] Stop: 07/07/17 16:59 Last Admin: 05/11/17 09:57 Dose: 5 mg Morphine Sulfate (Morphine) 2 mg IV Q4H PRN PRN Reason: Severe Pain Stop: 07/07/17 16:19 Last Admin: 05/10/17 13:44 Dose: 2 mg Ondansetron HCl (Zofran) 4 mg IV Q8H PRN PRN Reason: Nausea / Vomiting Stop: 07/07/17 11:18 Petrolatum (Zinc Oxide) 1 appl TP DAILY [facility] Stop: 07/07/17 16:59 Last Admin: 05/11/17 10:00 Dose: 1 appl Risperidone (Risperdal) 0.25 mg PO HS [facility] PRN Reason: Protocol Stop: 07/08/17 20:59 - Procedures Procedures: Procedures Procedure Code Date EXCISION OF LEFT AXILLARY LYMPHATIC, OPEN APPROACH, DIAGN [id number] 05/08/17 [place] [address] 05/08/17 RESECTION OF LEFT BREAST, OPEN APPROACH [id number] 05/08/17 Assessment/Plan - Problem List Patient Problems: All Active Problems POOR ORAL INTAKE WITH MUSCLE WEAKNESS (Acute)
--- NOTE | 2017-05-11 16:40 | Internal Medicine Prog Note ---
Internal Medicine Subjective - Subjective Patient seen and examined:: with staff, chart reviewed Patient is:: awake, verbal, non-interactive, in bed, confused Patient Complaints of:: congestion, cough, LBP, unable to sleep Per staff patient has:: no adverse event, poor appetite, agitated, combative, noncompliant, confused, refusing care, refusing labs Internal Medicine Objective - Results Result Diagrams: 05/11/17 06:12 05/11/17 06:12 Recent Labs: Laboratory Last Values WBC 7.4 Th/cmm (4.8-10.8) 05/11/17 06:12 RBC 3.47 Mil/cmm (3.80-5.20) L 05/11/17 06:12 Hgb 10.8 gm/dL (11.7-16.1) L 05/11/17 06:12 Hct 32.8 % (35.0-45.0) L 05/11/17 06:12 MCV 94.4 fl (81-100) 05/11/17 06:12 MCH 31.2 pg (27.0-31.0) H 05/11/17 06:12 MCHC Differential 33.0 pg (28.0-36.0) 05/11/17 06:12 RDW 13.6 % (11.5-20.0) 05/11/17 06:12 Plt Count 379 Th/cmm (150-400) 05/11/17 06:12 MPV 8.1 fl 05/11/17 06:12 Neutrophils % 68.3 % (40.0-80.0) 05/11/17 06:12 Lymphocytes % 18.3 % (20.0-50.0) L 05/11/17 06:12 Monocytes % 9.3 % (2.0-10.0) 05/11/17 06:12 Eosinophils % 4.0 % (0.0-5.0) 05/11/17 06:12 Basophils % 0.1 % (0.0-2.0) 05/11/17 06:12 PT 10.6 SECONDS (9.5-11.5) 05/08/17 09:20 INR 1.02 (0.5-1.4) 05/08/17 09:20 PTT (Actin FS) 26.5 SECONDS (26.0-38.0) 05/08/17 09:20 Sodium 137 mEq/L (136-145) 05/11/17 06:12 Potassium 4.2 mEq/L (3.5-5.1) 05/11/17 06:12 Chloride 106 mEq/L (98-107) 05/11/17 06:12 Carbon Dioxide 29.3 mEq/L (21.0-31.0) 05/11/17 06:12 Anion Gap 5.9 (7.0-16.0) L 05/11/17 06:12 BUN 8 mg/dL (7-25) 05/11/17 06:12 Creatinine 0.5 mg/dL (0.6-1.2) L 05/11/17 06:12 Est GFR ( Amer) TNP 05/11/17 06:12 Est GFR (Non-Af Amer) TNP 05/11/17 06:12 BUN/Creatinine Ratio 16.0 05/11/17 06:12 Glucose 105 mg/dL (70-105) 05/11/17 06:12 Calcium 9.4 mg/dL (8.6-10.3) 05/11/17 06:12 Total Bilirubin 0.5 mg/dL (0.3-1.0) 05/08/17 09:20 AST 15 U/L (13-39) 05/08/17 09:20 ALT 8 U/L (7-52) 05/08/17 09:20 Alkaline Phosphatase 95 U/L (34-104) 05/08/17 09:20 Ammonia 36 umol/L (16-53) 05/11/17 06:12 B-Natriuretic Peptide 197.0 pg/mL (5.0-100.0) H 05/11/17 06:12 Total Protein 8.2 gm/dL (6.0-8.3) 05/08/17 09:20 Albumin 4.0 gm/dL (3.7-5.3) 05/08/17 09:20 Globulin 4.2 gm/dL 05/08/17 09:20 Albumin/Globulin Ratio 1.0 (1.0-1.8) 05/08/17 09:20 - Physical Exam Vitals and I&O: Vital Signs Temp 97.0 F 05/11/17 04:00 Pulse 68 05/11/17 15:01 Resp 16 05/11/17 15:01 BP 122/70 05/11/17 04:00 Pulse Ox 94 05/11/17 15:01 Intake & Output 05/10/17 05/11/17 05/11/17 18:59 06:59 18:59 Intake Total 1000 60 Output Total 20 Balance 1000 40 Weight (lbs) 46.72 kg Intake: Intake, IV Amount 1000 D5-0.45NS 1,000 ml @ 60 1000 mls/hr IV .[id number] [facility] Rx #:[id number] Oral 60 Output: Drainage 20 SETH DRAIN 20 Other: # Voids 3 # Bowel Movements 1 Active Medications: Current Medications Acetaminophen (Tylenol) 650 mg PO Q4HR PRN PRN Reason: Pain Or Fever above 101 Stop: 07/07/17 11:18 Last Admin: 05/10/17 20:42 Dose: 650 mg Acetaminophen/Hydrocodone Bitart ([place] 5mg/325mg) 1 tab PO Q4H PRN PRN Reason: Pain (Severe) Stop: 07/09/17 13:51 Albuterol Sulfate (Albuterol 2.5mg/3ml Neb Ud) 2.5 mg HHN QIDRT [facility] Stop: 07/07/17 18:59 Last Admin: 05/11/17 14:41 Dose: 2.5 mg Ascorbic Acid (Vitamin C) 500 mg PO DAILY [facility] Stop: 07/08/17 08:59 Last Admin: 05/11/17 09:58 Dose: 500 mg Diphenhydramine HCl (Benadryl 50 Mg/Ml) 25 mg IVP Q6HR PRN PRN Reason: Itching Stop: 07/08/17 09:29 Last Admin: 05/10/17 20:43 Dose: 25 mg Docusate Sodium (Colace) 100 mg PO BID [facility] Stop: 07/07/17 16:59 Last Admin: 05/11/17 09:57 Dose: 100 mg Ferrous Sulfate (Iron) 325 mg PO DAILY [facility] Stop: 07/08/17 08:59 Last Admin: 05/11/17 09:58 Dose: 325 mg Guaifenesin (Robitussin) 100 mg PO Q4H PRN PRN Reason: Cough or Congestion Stop: 07/07/17 11:18 Dextrose/Sodium Chloride (D5-0.45ns) 1,000 mls @ 60 mls/hr IV .[id number] [facility] Stop: 07/07/17 11:29 Last Admin: 05/10/17 20:42 Dose: 60 mls/hr Ipratropium [place] (Atrovent Neb 0.5mg/2.5ml) 0.5 mg HHN QIDRT [facility] Stop: 07/07/17 18:59 Last Admin: 05/11/17 14:41 Dose: 0.5 mg Levothyroxine Sodium (Synthroid) 0.088 mg PO QDAC [facility] Stop: 07/08/17 07:29 Last Admin: 05/11/17 06:31 Dose: 0.088 mg Magnesium Hydroxide (Milk Of Magnesia) 30 ml PO DAILY PRN PRN Reason: Constipation Stop: 07/07/17 11:08 Memantine (Namenda) 5 mg PO BID [facility] Stop: 07/07/17 16:59 Last Admin: 05/11/17 09:57 Dose: 5 mg Morphine Sulfate (Morphine) 2 mg IV Q4H PRN PRN Reason: Severe Pain Stop: 07/07/17 16:19 Last Admin: 05/10/17 13:44 Dose: 2 mg Ondansetron HCl (Zofran) 4 mg IV Q8H PRN PRN Reason: Nausea / Vomiting Stop: 07/07/17 11:18 Petrolatum (Zinc Oxide) 1 appl TP DAILY [facility] Stop: 07/07/17 16:59 Last Admin: 05/11/17 10:00 Dose: 1 appl Risperidone (Risperdal) 0.25 mg PO HS [facility] PRN Reason: Protocol Stop: 07/08/17 20:59 General: weak, alert, thin, other (confused) HEENT: NC/AT, PERRLA Neck: Supple Lungs: rales, ronchi, chest deformity present Cardiovascular: RRR, Normal S1, Normal S2 Abdomen: soft, non-distended, positive bowel sound Extremities: excoriation, contracture Neurological: no change, disorganized, unsteady, bedbound - Procedures Procedures: Procedures Procedure Code Date EXCISION OF LEFT AXILLARY LYMPHATIC, OPEN APPROACH, DIAGN [id number] 05/08/17 [place] [address] 05/08/17 RESECTION OF LEFT BREAST, OPEN APPROACH [id number] 05/08/17 Internal Medicine Assmt/Plan - Assessment Assessment: LEFT BREAST MASS cw ca LEFT BREAST PAIN DYSPHAGIA HYPOTHYROIDISM PROTEIN CALORIE MALNUTRITION [facility] - Plan Plan: Excision biopsy left breast mass with frozen section, possible left modified radical mastectomy SURGICAL CONSULT pain mgmt AM LABS IVF FOR HYDRATION WILL MONITOR PATIENT CLOSELY - Plan Plan: see plan
[2017-05-12] MEDS: Levothyroxine 0.088 Mg Tab PO SCH (06:41)
[2017-05-12 07:05] LABS: % EOSINOPHILS 3.5 % (0.0-5.0); % MONOCYTES 7.1 % (2.0-10.0); % NEUTROPHILS 75.4 % (40.0-80.0); HEMATOCRIT 32.1 % (35.0-45.0); HEMOGLOBIN 10.9 gm/dL (11.7-16.1); MEAN CELL VOLUME 94.1 fl (81-100); MEAN PLATELET VOLUME 7.9 fl; NEUTROPHILE ABSOLUTE 5.9 Th/cmm (1.8-8.0); PLATELET COUNT 374 Th/cmm (150-400); RED BLOOD COUNT 3.41 Mil/cmm (3.80-5.20); RED CELL DISTRIBUTION WIDTH 13.9 % (11.5-20.0); WHITE BLOOD COUNT 7.9 Th/cmm (4.8-10.8)
[2017-05-12] MEDS: Albuterol Nebulizer 2.5mg/3mL HHN SCH ×2 (07:33→11:18)
[2017-05-12] MEDS: Ipratropium Neb 0.5 mg/2.5 mL UD HHN SCH ×3 (07:33→15:13)
[2017-05-12 07:42] LABS: ANION GAP 6.3 (7.0-16.0); BUN - UREA NITROGEN 7 mg/dL (7-25); CALCIUM SERUM 9.5 mg/dL (8.6-10.3); CARBON DIOXIDE 28.9 mEq/L (21.0-31.0); CHLORIDE 108 mEq/L (98-107); CREATININE - SERUM 0.5 mg/dL (0.6-1.2); GLUCOSE 129 mg/dL (70-105); MAGNESIUM 1.9 mg/dL (1.9-2.7); POTASSIUM SERUM 4.2 mEq/L (3.5-5.1); SODIUM SERUM 139 mEq/L (136-145)
--- NOTE | 2017-05-12 08:17 | General Progress Note ---
Subjective - Review of Systems Service Date: 05/12/17 Events since last encounter: MINIMAL DRAINAGE, DRAIN REMOVED SUTURES DO NOT NEED REMOVAL OFFICE FOLLOW UP NEEDED Objective - Results Result Diagrams: 05/12/17 06:54 05/12/17 06:54 Recent Labs: Laboratory Last Values WBC 7.9 Th/cmm (4.8-10.8) 05/12/17 06:54 RBC 3.41 Mil/cmm (3.80-5.20) L 05/12/17 06:54 Hgb 10.9 gm/dL (11.7-16.1) L 05/12/17 06:54 Hct 32.1 % (35.0-45.0) L 05/12/17 06:54 MCV 94.1 fl (81-100) 05/12/17 06:54 MCH 32.0 pg (27.0-31.0) H 05/12/17 06:54 MCHC Differential 34.0 pg (28.0-36.0) 05/12/17 06:54 RDW 13.9 % (11.5-20.0) 05/12/17 06:54 Plt Count 374 Th/cmm (150-400) 05/12/17 06:54 MPV 7.9 fl 05/12/17 06:54 Neutrophils % 75.4 % (40.0-80.0) 05/12/17 06:54 Lymphocytes % 13.0 % (20.0-50.0) L 05/12/17 06:54 Monocytes % 7.1 % (2.0-10.0) 05/12/17 06:54 Eosinophils % 3.5 % (0.0-5.0) 05/12/17 06:54 Basophils % 1.0 % (0.0-2.0) 05/12/17 06:54 PT 10.6 SECONDS (9.5-11.5) 05/08/17 09:20 INR 1.02 (0.5-1.4) 05/08/17 09:20 PTT (Actin FS) 26.5 SECONDS (26.0-38.0) 05/08/17 09:20 Sodium 139 mEq/L (136-145) 05/12/17 06:54 Potassium 4.2 mEq/L (3.5-5.1) 05/12/17 06:54 Chloride 108 mEq/L (98-107) H 05/12/17 06:54 Carbon Dioxide 28.9 mEq/L (21.0-31.0) 05/12/17 06:54 Anion Gap 6.3 (7.0-16.0) L 05/12/17 06:54 BUN 7 mg/dL (7-25) 05/12/17 06:54 Creatinine 0.5 mg/dL (0.6-1.2) L 05/12/17 06:54 Est GFR ( Amer) TNP 05/12/17 06:54 Est GFR (Non-Af Amer) TNP 05/12/17 06:54 BUN/Creatinine Ratio 14.0 05/12/17 06:54 Glucose 129 mg/dL (70-105) H 05/12/17 06:54 Calcium 9.5 mg/dL (8.6-10.3) 05/12/17 06:54 Magnesium 1.9 mg/dL (1.9-2.7) 05/12/17 06:54 Total Bilirubin 0.5 mg/dL (0.3-1.0) 05/08/17 09:20 AST 15 U/L (13-39) 05/08/17 09:20 ALT 8 U/L (7-52) 05/08/17 09:20 Alkaline Phosphatase 95 U/L (34-104) 05/08/17 09:20 Ammonia 36 umol/L (16-53) 05/11/17 06:12 B-Natriuretic Peptide 197.0 pg/mL (5.0-100.0) H 05/11/17 06:12 Total Protein 8.2 gm/dL (6.0-8.3) 05/08/17 09:20 Albumin 4.0 gm/dL (3.7-5.3) 05/08/17 09:20 Globulin 4.2 gm/dL 05/08/17 09:20 Albumin/Globulin Ratio 1.0 (1.0-1.8) 05/08/17 09:20 - Physical Exam Vitals and I&O: Vital Signs Temp 97.4 F 05/12/17 04:00 Pulse 99 05/12/17 04:00 Resp 18 05/12/17 04:00 BP 114/68 05/12/17 04:00 Pulse Ox 100 05/12/17 04:00 Intake & Output 05/11/17 05/12/17 05/12/17 18:59 06:59 18:59 Intake Total 900 Output Total 16 35 Balance 884 -35 Weight (lbs) 46.72 kg 46.176 kg Intake: Oral 900 Output: Drainage 15 35 SETH DRAIN 15 35 Stool 1 Other: # Voids 4 2 # Bowel Movements 0 Stool Characteristics Soft Soft Active Medications: Current Medications Acetaminophen (Tylenol) 650 mg PO Q4HR PRN PRN Reason: Pain Or Fever above 101 Stop: 07/07/17 11:18 Last Admin: 05/10/17 20:42 Dose: 650 mg Acetaminophen/Hydrocodone Bitart ([place] 5mg/325mg) 1 tab PO Q4H PRN PRN Reason: Pain (Severe) Stop: 07/09/17 13:51 Albuterol Sulfate (Albuterol 2.5mg/3ml Neb Ud) 2.5 mg HHN QIDRT [facility] Stop: 07/07/17 18:59 Last Admin: 05/12/17 07:33 Dose: 2.5 mg Ascorbic Acid (Vitamin C) 500 mg PO DAILY [facility] Stop: 07/08/17 08:59 Last Admin: 05/11/17 09:58 Dose: 500 mg Diphenhydramine HCl (Benadryl 50 Mg/Ml) 25 mg IVP Q6HR PRN PRN Reason: Itching Stop: 07/08/17 09:29 Last Admin: 05/10/17 20:43 Dose: 25 mg Docusate Sodium (Colace) 100 mg PO BID [facility] Stop: 07/07/17 16:59 Last Admin: 05/11/17 17:57 Dose: 100 mg Ferrous Sulfate (Iron) 325 mg PO DAILY [facility] Stop: 07/08/17 08:59 Last Admin: 05/11/17 09:58 Dose: 325 mg Guaifenesin (Robitussin) 100 mg PO Q4H PRN PRN Reason: Cough or Congestion Stop: 07/07/17 11:18 Dextrose/Sodium Chloride (D5-0.45ns) 1,000 mls @ 60 mls/hr IV .[id number] [facility] Stop: 07/07/17 11:29 Last Admin: 05/10/17 20:42 Dose: 60 mls/hr Ipratropium [place] (Atrovent Neb 0.5mg/2.5ml) 0.5 mg HHN QIDRT [facility] Stop: 07/07/17 18:59 Last Admin: 05/12/17 07:33 Dose: 0.5 mg Levothyroxine Sodium (Synthroid) 0.088 mg PO QDAC [facility] Stop: 07/08/17 07:29 Last Admin: 05/12/17 06:41 Dose: 0.088 mg Magnesium Hydroxide (Milk Of Magnesia) 30 ml PO DAILY PRN PRN Reason: Constipation Stop: 07/07/17 11:08 Memantine (Namenda) 5 mg PO BID [facility] Stop: 07/07/17 16:59 Last Admin: 05/11/17 17:57 Dose: 5 mg Morphine Sulfate (Morphine) 2 mg IV Q4H PRN PRN Reason: Severe Pain Stop: 07/07/17 16:19 Last Admin: 05/10/17 13:44 Dose: 2 mg Ondansetron HCl (Zofran) 4 mg IV Q8H PRN PRN Reason: Nausea / Vomiting Stop: 07/07/17 11:18 Petrolatum (Zinc Oxide) 1 appl TP DAILY [facility] Stop: 07/07/17 16:59 Last Admin: 05/11/17 10:00 Dose: 1 appl Risperidone (Risperdal) 0.25 mg PO HS [facility]ICIA PRN Reason: Protocol Stop: 07/08/17 20:59 Last Admin: 05/11/17 20:22 Dose: 0.25 mg Rivaroxaban (Xarelto) 10 mg PO BID [facility] Stop: 07/10/17 16:59 - Procedures Procedures: Procedures Procedure Code Date EXCISION OF LEFT AXILLARY LYMPHATIC, OPEN APPROACH, DIAGN [id number] 05/08/17 [place] [address] 05/08/17 RESECTION OF LEFT BREAST, OPEN APPROACH [id number] 05/08/17 Assessment/Plan - Problem List Patient Problems: All Active Problems POOR ORAL INTAKE WITH MUSCLE WEAKNESS (Acute)
--- NOTE | 2017-05-12 08:21 | General Progress Note ---
Subjective - Review of Systems Service Date: 05/12/17 Events since last encounter: SETH DRAIN REMOVED SUTURES ARE ABSORBABLE, NO OFFICE FOLLOW UP NEEDED EXCEPT FOR ANY SIGN OF INFECTION, ETC Objective - Results Result Diagrams: 05/12/17 06:54 05/12/17 06:54 Recent Labs: Laboratory Last Values WBC 7.9 Th/cmm (4.8-10.8) 05/12/17 06:54 RBC 3.41 Mil/cmm (3.80-5.20) L 05/12/17 06:54 Hgb 10.9 gm/dL (11.7-16.1) L 05/12/17 06:54 Hct 32.1 % (35.0-45.0) L 05/12/17 06:54 MCV 94.1 fl (81-100) 05/12/17 06:54 MCH 32.0 pg (27.0-31.0) H 05/12/17 06:54 MCHC Differential 34.0 pg (28.0-36.0) 05/12/17 06:54 RDW 13.9 % (11.5-20.0) 05/12/17 06:54 Plt Count 374 Th/cmm (150-400) 05/12/17 06:54 MPV 7.9 fl 05/12/17 06:54 Neutrophils % 75.4 % (40.0-80.0) 05/12/17 06:54 Lymphocytes % 13.0 % (20.0-50.0) L 05/12/17 06:54 Monocytes % 7.1 % (2.0-10.0) 05/12/17 06:54 Eosinophils % 3.5 % (0.0-5.0) 05/12/17 06:54 Basophils % 1.0 % (0.0-2.0) 05/12/17 06:54 PT 10.6 SECONDS (9.5-11.5) 05/08/17 09:20 INR 1.02 (0.5-1.4) 05/08/17 09:20 PTT (Actin FS) 26.5 SECONDS (26.0-38.0) 05/08/17 09:20 Sodium 139 mEq/L (136-145) 05/12/17 06:54 Potassium 4.2 mEq/L (3.5-5.1) 05/12/17 06:54 Chloride 108 mEq/L (98-107) H 05/12/17 06:54 Carbon Dioxide 28.9 mEq/L (21.0-31.0) 05/12/17 06:54 Anion Gap 6.3 (7.0-16.0) L 05/12/17 06:54 BUN 7 mg/dL (7-25) 05/12/17 06:54 Creatinine 0.5 mg/dL (0.6-1.2) L 05/12/17 06:54 Est GFR ( Amer) TNP 05/12/17 06:54 Est GFR (Non-Af Amer) TNP 05/12/17 06:54 BUN/Creatinine Ratio 14.0 05/12/17 06:54 Glucose 129 mg/dL (70-105) H 05/12/17 06:54 Calcium 9.5 mg/dL (8.6-10.3) 05/12/17 06:54 Magnesium 1.9 mg/dL (1.9-2.7) 05/12/17 06:54 Total Bilirubin 0.5 mg/dL (0.3-1.0) 05/08/17 09:20 AST 15 U/L (13-39) 05/08/17 09:20 ALT 8 U/L (7-52) 05/08/17 09:20 Alkaline Phosphatase 95 U/L (34-104) 05/08/17 09:20 Ammonia 36 umol/L (16-53) 05/11/17 06:12 B-Natriuretic Peptide 197.0 pg/mL (5.0-100.0) H 05/11/17 06:12 Total Protein 8.2 gm/dL (6.0-8.3) 05/08/17 09:20 Albumin 4.0 gm/dL (3.7-5.3) 05/08/17 09:20 Globulin 4.2 gm/dL 05/08/17 09:20 Albumin/Globulin Ratio 1.0 (1.0-1.8) 05/08/17 09:20 - Physical Exam Vitals and I&O: Vital Signs Temp 97.4 F 05/12/17 04:00 Pulse 99 05/12/17 04:00 Resp 18 05/12/17 07:57 BP 114/68 07/10/17 04:00 Pulse Ox 100 05/12/17 04:00 Intake & Output 05/11/17 05/12/17 05/12/17 18:59 06:59 18:59 Intake Total 900 Output Total 16 35 Balance 884 -35 Weight (lbs) 46.72 kg 46.176 kg Intake: Oral 900 Output: Drainage 15 35 SETH DRAIN 15 35 Stool 1 Other: # Voids 4 2 # Bowel Movements 0 Stool Characteristics Soft Soft Soft Active Medications: Current Medications Acetaminophen (Tylenol) 650 mg PO Q4HR PRN PRN Reason: Pain Or Fever above 101 Stop: 07/07/17 11:18 Last Admin: 05/10/17 20:42 Dose: 650 mg Acetaminophen/Hydrocodone Bitart ([place] 5mg/325mg) 1 tab PO Q4H PRN PRN Reason: Pain (Severe) Stop: 07/09/17 13:51 Albuterol Sulfate (Albuterol 2.5mg/3ml Neb Ud) 2.5 mg HHN QIDRT [facility] Stop: 07/07/17 18:59 Last Admin: 05/12/17 07:33 Dose: 2.5 mg Ascorbic Acid (Vitamin C) 500 mg PO DAILY [facility] Stop: 07/08/17 08:59 Last Admin: 05/11/17 09:58 Dose: 500 mg Diphenhydramine HCl (Benadryl 50 Mg/Ml) 25 mg IVP Q6HR PRN PRN Reason: Itching Stop: 07/08/17 09:29 Last Admin: 05/10/17 20:43 Dose: 25 mg Docusate Sodium (Colace) 100 mg PO BID [facility] Stop: 07/07/17 16:59 Last Admin: 05/11/17 17:57 Dose: 100 mg Ferrous Sulfate (Iron) 325 mg PO DAILY [facility] Stop: 07/08/17 08:59 Last Admin: 05/11/17 09:58 Dose: 325 mg Guaifenesin (Robitussin) 100 mg PO Q4H PRN PRN Reason: Cough or Congestion Stop: 07/07/17 11:18 Dextrose/Sodium Chloride (D5-0.45ns) 1,000 mls @ 60 mls/hr IV .[id number] [facility] Stop: 07/07/17 11:29 Last Admin: 05/10/17 20:42 Dose: 60 mls/hr Ipratropium [place] (Atrovent Neb 0.5mg/2.5ml) 0.5 mg HHN QIDRT [facility] Stop: 07/07/17 18:59 Last Admin: 05/12/17 07:33 Dose: 0.5 mg Levothyroxine Sodium (Synthroid) 0.088 mg PO QDAC [facility] Stop: 07/08/17 07:29 Last Admin: 05/12/17 06:41 Dose: 0.088 mg Magnesium Hydroxide (Milk Of Magnesia) 30 ml PO DAILY PRN PRN Reason: Constipation Stop: 07/07/17 11:08 Memantine (Namenda) 5 mg PO BID [facility] Stop: 07/07/17 16:59 Last Admin: 05/11/17 17:57 Dose: 5 mg Morphine Sulfate (Morphine) 2 mg IV Q4H PRN PRN Reason: Severe Pain Stop: 07/07/17 16:19 Last Admin: 05/10/17 13:44 Dose: 2 mg Ondansetron HCl (Zofran) 4 mg IV Q8H PRN PRN Reason: Nausea / Vomiting Stop: 07/07/17 11:18 Petrolatum (Zinc Oxide) 1 appl TP DAILY [facility] Stop: 07/07/17 16:59 Last Admin: 05/11/17 10:00 Dose: 1 appl Risperidone (Risperdal) 0.25 mg PO HS [facility] PRN Reason: Protocol Stop: 07/08/17 20:59 Last Admin: 05/11/17 20:22 Dose: 0.25 mg Rivaroxaban (Xarelto) 10 mg PO BID [facility] Stop: 07/10/17 16:59 - Procedures Procedures: Procedures Procedure Code Date EXCISION OF LEFT AXILLARY LYMPHATIC, OPEN APPROACH, DIAGN [id number] 05/08/17 [place] [address] 05/08/17 RESECTION OF LEFT BREAST, OPEN APPROACH [id number] 05/08/17 Assessment/Plan - Problem List Patient Problems: All Active Problems POOR ORAL INTAKE WITH MUSCLE WEAKNESS (Acute)
[2017-05-12] MEDS: Ferrous Sulfate 325 MG TAB PO SCH (08:39)
--- NOTE | 2017-05-12 11:46 | General Progress Note ---
Subjective - Review of Systems Service Date: 05/12/17 Events since last encounter: less agitated Objective - Results Result Diagrams: 05/12/17 06:54 05/12/17 06:54 Recent Labs: Laboratory Last Values WBC 7.9 Th/cmm (4.8-10.8) 05/12/17 06:54 RBC 3.41 Mil/cmm (3.80-5.20) L 05/12/17 06:54 Hgb 10.9 gm/dL (11.7-16.1) L 05/12/17 06:54 Hct 32.1 % (35.0-45.0) L 05/12/17 06:54 MCV 94.1 fl (81-100) 05/12/17 06:54 MCH 32.0 pg (27.0-31.0) H 05/12/17 06:54 MCHC Differential 34.0 pg (28.0-36.0) 05/12/17 06:54 RDW 13.9 % (11.5-20.0) 05/12/17 06:54 Plt Count 374 Th/cmm (150-400) 05/12/17 06:54 MPV 7.9 fl 05/12/17 06:54 Neutrophils % 75.4 % (40.0-80.0) 05/12/17 06:54 Lymphocytes % 13.0 % (20.0-50.0) L 05/12/17 06:54 Monocytes % 7.1 % (2.0-10.0) 05/12/17 06:54 Eosinophils % 3.5 % (0.0-5.0) 05/12/17 06:54 Basophils % 1.0 % (0.0-2.0) 05/12/17 06:54 PT 10.6 SECONDS (9.5-11.5) 05/08/17 09:20 INR 1.02 (0.5-1.4) 05/08/17 09:20 PTT (Actin FS) 26.5 SECONDS (26.0-38.0) 05/08/17 09:20 Sodium 139 mEq/L (136-145) 05/12/17 06:54 Potassium 4.2 mEq/L (3.5-5.1) 05/12/17 06:54 Chloride 108 mEq/L (98-107) H 05/12/17 06:54 Carbon Dioxide 28.9 mEq/L (21.0-31.0) 05/12/17 06:54 Anion Gap 6.3 (7.0-16.0) L 05/12/17 06:54 BUN 7 mg/dL (7-25) 05/12/17 06:54 Creatinine 0.5 mg/dL (0.6-1.2) L 05/12/17 06:54 Est GFR ( Amer) TNP 05/12/17 06:54 Est GFR (Non-Af Amer) TNP 05/12/17 06:54 BUN/Creatinine Ratio 14.0 05/12/17 06:54 Glucose 129 mg/dL (70-105) H 05/12/17 06:54 Calcium 9.5 mg/dL (8.6-10.3) 05/12/17 06:54 Magnesium 1.9 mg/dL (1.9-2.7) 05/12/17 06:54 Total Bilirubin 0.5 mg/dL (0.3-1.0) 05/08/17 09:20 AST 15 U/L (13-39) 05/08/17 09:20 ALT 8 U/L (7-52) 05/08/17 09:20 Alkaline Phosphatase 95 U/L (34-104) 05/08/17 09:20 Ammonia 36 umol/L (16-53) 05/11/17 06:12 B-Natriuretic Peptide 197.0 pg/mL (5.0-100.0) H 05/11/17 06:12 Total Protein 8.2 gm/dL (6.0-8.3) 05/08/17 09:20 Albumin 4.0 gm/dL (3.7-5.3) 05/08/17 09:20 Globulin 4.2 gm/dL 05/08/17 09:20 Albumin/Globulin Ratio 1.0 (1.0-1.8) 05/08/17 09:20 - Physical Exam Vitals and I&O: Vital Signs Temp 97.4 F 05/12/17 04:00 Pulse 93 05/12/17 11:20 Resp 14 05/12/17 11:20 BP 114/68 05/12/17 04:00 Pulse Ox 98 05/12/17 11:20 Intake & Output 05/11/17 05/12/17 05/12/17 18:59 06:59 18:59 Intake Total 900 Output Total 16 35 Balance 884 -35 Weight (lbs) 46.72 kg 46.176 kg Intake: Oral 900 Output: Drainage 15 35 SETH DRAIN 15 35 Stool 1 Other: # Voids 4 2 # Bowel Movements 0 Stool Characteristics Soft Soft Soft Active Medications: Current Medications Acetaminophen (Tylenol) 650 mg PO Q4HR PRN PRN Reason: Pain Or Fever above 101 Stop: 07/07/17 11:18 Last Admin: 05/10/17 20:42 Dose: 650 mg Acetaminophen/Hydrocodone Bitart ([place] 5mg/325mg) 1 tab PO Q4H PRN PRN Reason: Pain (Severe) Stop: 07/09/17 13:51 Albuterol Sulfate (Albuterol 2.5mg/3ml Neb Ud) 2.5 mg HHN QIDRT [facility] Stop: 07/07/17 18:59 Last Admin: 05/12/17 11:18 Dose: 2.5 mg Ascorbic Acid (Vitamin C) 500 mg PO DAILY [facility] Stop: 07/08/17 08:59 Last Admin: 05/12/17 08:40 Dose: 500 mg Diphenhydramine HCl (Benadryl 50 Mg/Ml) 25 mg IVP Q6HR PRN PRN Reason: Itching Stop: 07/08/17 09:29 Last Admin: 05/10/17 20:43 Dose: 25 mg Docusate Sodium (Colace) 100 mg PO BID [facility] Stop: 07/07/17 16:59 Last Admin: 05/11/17 17:57 Dose: 100 mg Ferrous Sulfate (Iron) 325 mg PO DAILY [facility] Stop: 07/08/17 08:59 Last Admin: 05/12/17 08:39 Dose: 325 mg Guaifenesin (Robitussin) 100 mg PO Q4H PRN PRN Reason: Cough or Congestion Stop: 07/07/17 11:18 Dextrose/Sodium Chloride (D5-0.45ns) 1,000 mls @ 60 mls/hr IV .[id number] [facility] Stop: 07/07/17 11:29 Last Admin: 05/10/17 20:42 Dose: 60 mls/hr Ipratropium [place] (Atrovent Neb 0.5mg/2.5ml) 0.5 mg HHN QIDRT [facility] Stop: 07/07/17 18:59 Last Admin: 05/12/17 11:18 Dose: 0.5 mg Levothyroxine Sodium (Synthroid) 0.088 mg PO QDAC [facility] Stop: 07/08/17 07:29 Last Admin: 05/12/17 06:41 Dose: 0.088 mg Magnesium Hydroxide (Milk Of Magnesia) 30 ml PO DAILY PRN PRN Reason: Constipation Stop: 07/07/17 11:08 Memantine (Namenda) 5 mg PO BID [facility] Stop: 07/07/17 16:59 Last Admin: 05/12/17 08:40 Dose: 5 mg Miscellaneous (Clinical Monitoring) 1 ea MC DAILY PRN PRN Reason: RENAL Stop: 07/11/17 08:30 Morphine Sulfate (Morphine) 2 mg IV Q4H PRN PRN Reason: Severe Pain Stop: 07/07/17 16:19 Last Admin: 05/10/17 13:44 Dose: 2 mg Ondansetron HCl (Zofran) 4 mg IV Q8H PRN PRN Reason: Nausea / Vomiting Stop: 07/07/17 11:18 Petrolatum (Zinc Oxide) 1 appl TP DAILY [facility] Stop: 07/07/17 16:59 Last Admin: 05/11/17 10:00 Dose: 1 appl Risperidone (Risperdal) 0.25 mg PO HS [facility] PRN Reason: Protocol Stop: 07/08/17 20:59 Last Admin: 05/11/17 20:22 Dose: 0.25 mg Rivaroxaban (Xarelto) 10 mg PO BID [facility] Stop: 07/11/17 08:59 Last Admin: 05/12/17 08:40 Dose: 10 mg - Procedures Procedures: Procedures Procedure Code Date EXCISION OF LEFT AXILLARY LYMPHATIC, OPEN APPROACH, DIAGN [id number] 05/08/17 [place] [address] 05/08/17 RESECTION OF LEFT BREAST, OPEN APPROACH [id number] 05/08/17 Assessment/Plan - Problem List Patient Problems: All Active Problems POOR ORAL INTAKE WITH MUSCLE WEAKNESS (Acute) - Assessment Assessment: * Breast cancer infilterating ductal carcinoma * Psychosis Awaiting path report
--- NOTE | 2017-05-12 12:17 | Discharge Summary ---
General Discharge Summary - Discharge Summary Date of Admission: 05/08/17 Admitting Diagnosis: left breastr mass, left breast pain Discharge Date: 05/12/17 Discharge Diagnosis: s/p excision bx left breast mass with frozen section, left radical mastecto Laboratory Findings: Laboratory Tests 05/08/17 05/08/17 05/08/17 09:20 09:20 09:20 WBC 7.5 RBC 3.68 L Hgb 11.4 L Hct 35.0 D MCV 95.0 MCH 31.0 MCHC Differential 32.7 RDW 13.9 Plt Count 395 D MPV 8.2 Neutrophils % 74.7 Lymphocytes % 16.4 L Monocytes % 6.0 Eosinophils % 2.8 Basophils % 0.1 PT 10.6 INR 1.02 PTT (Actin FS) 26.5 Sodium 137 Potassium 3.8 Chloride 105 Carbon Dioxide 25.7 Anion Gap 10.1 BUN 20 Creatinine 0.5 L Est GFR ( Amer) TNP Est GFR (Non-Af Amer) TNP BUN/Creatinine Ratio 40.0 Glucose 133 H Calcium 9.7 Magnesium Total Bilirubin 0.5 AST 15 ALT 8 Alkaline Phosphatase 95 Ammonia B-Natriuretic Peptide Total Protein 8.2 Albumin 4.0 Globulin 4.2 Albumin/Globulin Ratio 1.0 05/09/17 05/09/17 05/10/17 06:43 06:43 07:32 WBC 8.5 7.4 RBC 3.22 L 3.51 L Hgb 10.3 L 11.3 L Hct 30.2 L D 33.3 L D MCV 93.9 94.8 MCH 32.1 H 32.1 H MCHC Differential 34.2 33.9 RDW 14.4 13.7 Plt Count 358 346 MPV 8.5 7.9 Neutrophils % 73.6 63.9 Lymphocytes % 14.8 L 23.7 Monocytes % 9.0 8.9 Eosinophils % 2.0 2.9 Basophils % 0.6 0.6 PT INR PTT (Actin FS) Sodium 136 Potassium 4.0 Chloride 105 Carbon Dioxide 27.8 Anion Gap 7.2 BUN 14 Creatinine 0.4 L Est GFR ( Amer) TNP Est GFR (Non-Af Amer) TNP BUN/Creatinine Ratio 35.0 Glucose 122 H Calcium 9.0 Magnesium Total Bilirubin AST ALT Alkaline Phosphatase Ammonia B-Natriuretic Peptide Total Protein Albumin Globulin Albumin/Globulin Ratio 05/10/17 05/11/17 05/11/17 07:32 06:12 06:12 WBC 7.4 RBC 3.47 L Hgb 10.8 L Hct 32.8 L MCV 94.4 MCH 31.2 H MCHC Differential 33.0 RDW 13.6 Plt Count 379 MPV 8.1 Neutrophils % 68.3 Lymphocytes % 18.3 L Monocytes % 9.3 Eosinophils % 4.0 Basophils % 0.1 PT INR PTT (Actin FS) Sodium 135 L 137 Potassium 4.0 4.2 Chloride 104 106 Carbon Dioxide 28.5 29.3 Anion Gap 6.5 L 5.9 L BUN 10 8 Creatinine 0.5 L 0.5 L Est GFR ( Amer) TNP TNP Est GFR (Non-Af Amer) TNP TNP BUN/Creatinine Ratio 20.0 16.0 Glucose 116 H 105 Calcium 9.3 9.4 Magnesium Total Bilirubin AST ALT Alkaline Phosphatase Ammonia B-Natriuretic Peptide Total Protein Albumin Globulin Albumin/Globulin Ratio 05/11/17 05/11/17 05/12/17 06:12 06:12 06:54 WBC 7.9 RBC 3.41 L Hgb 10.9 L Hct 32.1 L MCV 94.1 MCH 32.0 H MCHC Differential 34.0 RDW 13.9 Plt Count 374 MPV 7.9 Neutrophils % 75.4 Lymphocytes % 13.0 L Monocytes % 7.1 Eosinophils % 3.5 Basophils % 1.0 PT INR PTT (Actin FS) Sodium Potassium Chloride Carbon Dioxide Anion Gap BUN Creatinine Est GFR ( Amer) Est GFR (Non-Af Amer) BUN/Creatinine Ratio Glucose Calcium Magnesium Total Bilirubin AST ALT Alkaline Phosphatase Ammonia 36 B-Natriuretic Peptide 197.0 H Total Protein Albumin Globulin Albumin/Globulin Ratio 05/12/17 06:54 WBC RBC Hgb Hct MCV MCH MCHC Differential RDW Plt Count MPV Neutrophils % Lymphocytes % Monocytes % Eosinophils % Basophils % PT INR PTT (Actin FS) Sodium 139 Potassium 4.2 Chloride 108 H Carbon Dioxide 28.9 Anion Gap 6.3 L BUN 7 Creatinine 0.5 L Est GFR ( Amer) TNP Est GFR (Non-Af Amer) TNP BUN/Creatinine Ratio 14.0 Glucose 129 H Calcium 9.5 Magnesium 1.9 Total Bilirubin AST ALT Alkaline Phosphatase Ammonia B-Natriuretic Peptide Total Protein Albumin Globulin Albumin/Globulin Ratio Hospital Course: DURING THE HOSPITAL STAY PATIENT ADMITTED TO THE [facility], PATIENT HAD A EXCISION BIOPSY LEFT BREAST MASS MODIFIED RADICAL MASTECTOMY ON 05/08/17, PATIENT TOLERATED PROCEDURE WELL AND HAD A SETH DRAIN. ONCOLOGY CONSULT WAS OBTAINED WITH DR. CANO HIS PLAN OF CARE FOR THIS PATIENT IS TO AWAIT FINAL PATHOLOGY REPORT. PATIENT CLEARED BY SURGEON FOR DISCHARGE FOR THIS REASON PATIENT STABLE FOR DISCHARGE. Disposition: Other Care w/in this hosp Home Medications: Home Medication Medication Instructions Recorded Type Acetaminophen [Tylenol] 650 mg PO Q6HR PRN 04/23/17 History Ascorbic Acid [Vitamin C] 500 mg PO DAILY 04/23/17 History Docusate Sodium [Dok] 100 mg PO BID 04/23/17 History Ferrous Sulfate [Iron] 325 mg PO DAILY 04/23/17 History Levothyroxine [Synthroid] 0.088 mg PO QDAC 04/23/17 History Magnesium Hydroxide [Milk of 30 ml PO DAILY PRN 04/23/17 History Magnesia] Memantine [Namenda] 5 mg PO BID 04/23/17 History Multivitamin w/ Minerals 1 tab PO DAILY 04/23/17 History [Theragran M] Zinc Oxide 30 gm TP DAILY 04/23/17 History Acetaminophen [Tylenol] 650 mg PO Q4HR PRN tab 04/26/17 Rx Albuterol Nebulizer 2.5mg/3mL 2.5 mg IH Q2HR PRN each 04/26/17 Rx [Albuterol Neb UD*] Enoxaparin [Lovenox] 40 mg SUBQ Q12H syr 04/26/17 Rx Ipratropium Neb 0.5 mg/2.5 mL 0.5 mg IH Q2HR PRN each 04/26/17 Rx [Atrovent Neb 0.5MG/2.5ML] Multivitamin w/ Minerals 1 tab PO DAILY tab 04/26/17 Rx [Theragran M] Ondansetron HCl [Zofran*] 4 mg IV Q8H PRN vial 04/26/17 Rx guaiFENesin [Robitussin] 100 mg PO Q4H PRN udc 04/26/17 Rx Inpatient Medications: Current Medications Ascorbic Acid (Vitamin C) 500 mg PO DAILY [facility] Stop: 07/08/17 08:59 Last Admin: 05/12/17 08:40 Dose: 500 mg Docusate Sodium (Colace) 100 mg PO BID [facility] Stop: 07/07/17 16:59 Last Admin: 05/11/17 17:57 Dose: 100 mg Ferrous Sulfate (Iron) 325 mg PO DAILY [facility]ICIA Stop: 07/08/17 08:59 Last Admin: 05/12/17 08:39 Dose: 325 mg Ipratropium [place] (Atrovent Neb 0.5mg/2.5ml) 0.5 mg HHN QIDRT [facility]IC[facility] Stop: 07/07/17 18:59 Last Admin: 05/12/17 11:18 Dose: 0.5 mg Levothyroxine Sodium (Synthroid) 0.088 mg PO QDAC [facility] Stop: 07/08/17 07:29 Last Admin: 05/12/17 06:41 Dose: 0.088 mg Magnesium Hydroxide (Milk Of Magnesia) 30 ml PO DAILY PRN PRN Reason: Constipation Stop: 07/07/17 11:08 Memantine (Namenda) 5 mg PO BID [facility] Stop: 07/07/17 16:59 Last Admin: 05/12/17 08:40 Dose: 5 mg Petrolatum (Zinc Oxide) 1 appl TP DAILY [facility] Stop: 07/07/17 16:59 Last Admin: 05/11/17 10:00 Dose: 1 appl Rivaroxaban (Xarelto) 10 mg PO BID [facility] Stop: 07/11/17 08:59 Last Admin: 05/12/17 08:40 Dose: 10 mg Activity: As Tolerated Consults and Follow-Up: Sascha Chow [Primary Care Provider] - Consulting Speciality: Surgery, Oncology
== END 2017-05-12 16:05 | disposition home or self-care (01) | DRG 582 ==
LOC: MSI 08:26
PROVIDERS: ADMIT Internal Medicine; ATTEND Internal Medicine
PROC: 0HTU0ZZ Resection of Left Breast, Open Approach (ICD-10-PCS; principal; 2017-05-08)
PROC: 0HBU0ZX Excision of Left Breast, Open Approach, Diagnostic (ICD-10-PCS; 2017-05-08)
DX: C50.912 Malignant neoplasm of unspecified site of left female breast (principal); E44.1 Mild protein-calorie malnutrition; R64 Cachexia; G30.9 Alzheimer's disease, unspecified; I48.91 Unspecified atrial fibrillation; F02.80 Dementia in other diseases classified elsewhere, unspecified severity, without behavioral disturbance, psychotic disturbance, mood disturbance, and anxiety; Z68.1 Body mass index [BMI] 19.9 or less, adult; R13.10 Dysphagia, unspecified; E03.9 Hypothyroidism, unspecified; F29 Unspecified psychosis not due to a substance or known physiological condition; Z79.899 Other long term (current) drug therapy
CPT/HCPCS: 36415-UA; 71010-TC; 80048-TC; 80053-TC; 82140-TC; 83735-TC; 83880-TC; 85025-TC; 85610-TC; 90779; 93005; 94760; J0690; J1200; J1650; J2001; J2250; J2704; J7613; X6026; X6206; Z7610

== ENCOUNTER 2018-08-01 12:47 | Inpatient (IN) | payer MEDICARE, MEDICAID ==
--- NOTE | 2018-08-01 13:15 | ED Physician Chart ---
ED Chief Complaint/HPI - Patient Information Date Seen:: 08/01/18 Time Seen:: 13:00 Chief Complaint:: abnormal lab results History of Present Illness:: THIS IS AN 88 YO FEMALE SENT HERE FROM THE [facility] FOR AN EVALUATION AND TREATMENT OF ABNORMAL LAB RESULTS. SHE IS CHRONICALLY ILL AND IS DEMENTED. Allergies:: Allergies Allergy/AdvReac Type Severity Reaction Status Date / Time No Known Allergies Allergy Verified 04/23/17 11:30 Vitals:: Vital Signs - 8 hr 08/01/18 12:57 Temp 98.4 F HR 120 RR 21 BP 114/69 O2 Sat % 100 Historian:: Medical Records Review:: Nurse's Note Reviewed, Transfer documents Reviewed ED Review of Systems - Review of Systems General/Constitutional: Other (THE PATIENT IS UNABLE TO GIVE A REVIEW OF SYSTEMS.) ED Past Medical History - Past Medical History Obtainable: Yes Past Medical History: CAD, CVA/TIA, Thyroid disorder, Arthritis, Dementia, Other (CA OF THE LEFT BREAST) Family History: None Social History: Non Smoker, No Alcohol, No Drug Use, Care Facility Surgical History: None Psychiatricy History: Schizophrenia, Dementia Medication: Reviewed Family Medical History - Family Member Mother History Unknown: Yes (noncontributory) Ethnicity: Living Status: ED Physical Exam - Physical Examination Other Gen/Cons comments:: LETHARGIC AND NON-VERBAL Other Extremities comments:: ALL FOUR EXTREMITIES HAVE SIGNIFICANT MUSCLES WASTING AND WITHOUT EDEMA BUT CONTRACTED. Neuro/Psych: Alert/oriented (THIS PATIENT IS NOT ALERT OR ORIENTED) ED Labs/Radiology/EKG Results - Lab Results Results: Abnormal Lab Results 08/01/18 08/01/18 08/01/18 10:20 13:07 13:07 WBC 7.5 RBC 3.59 L Hgb 11.9 L Hct 35.3 L MCV 98.5 MCH 33.2 H MCHC Differential 33.7 RDW 12.9 Plt Count 304 MPV 9.7 Neutrophils % 63.3 Lymphocytes % 23.6 Monocytes % 8.9 Eosinophils % 3.5 Basophils % 0.7 Sodium 136 Potassium 3.8 Chloride 106 Carbon Dioxide 21.8 Anion Gap 12.0 BUN 20 Creatinine 0.5 L Est GFR ( Amer) TNP Est GFR (Non-Af Amer) TNP BUN/Creatinine Ratio 40.0 Glucose 176 H Calcium 9.6 Total Bilirubin 0.6 AST 20 ALT 13 Alkaline Phosphatase 93 Troponin I Total Protein 7.5 Albumin 4.2 Globulin 3.3 Albumin/Globulin Ratio 1.3 Urine Source [place] Urine Color YELLOW Urine Clarity CLOUDY H Urine pH 6.0 Ur Specific [place] 1.010 Urine Protein 100 H Urine Glucose (UA) NEGATIVE Urine Ketones NEGATIVE Urine Blood MODERATE H Urine Nitrate NEGATIVE Urine Bilirubin NEGATIVE Urine Urobilinogen 1.0 Ur Leukocyte Esterase LARGE H Urine RBC 2-5 Urine WBC >100 H Ur Epithelial Cells FEW Urine Bacteria MODERATE H Hyaline Casts 2-5 H 08/01/18 13:07 WBC RBC Hgb Hct MCV MCH MCHC Differential RDW Plt Count MPV Neutrophils % Lymphocytes % Monocytes % Eosinophils % Basophils % Sodium Potassium Chloride Carbon Dioxide Anion Gap BUN Creatinine Est GFR ( Amer) Est GFR (Non-Af Amer) BUN/Creatinine Ratio Glucose Calcium Total Bilirubin AST ALT Alkaline Phosphatase Troponin I 0.01 Total Protein Albumin Globulin Albumin/Globulin Ratio Urine Source Urine Color Urine Clarity Urine pH Ur Specific [place] Urine Protein Urine Glucose (UA) Urine Ketones Urine Blood Urine Nitrate Urine Bilirubin Urine Urobilinogen Ur Leukocyte Esterase Urine RBC Urine WBC Ur Epithelial Cells Urine Bacteria Hyaline Casts - Radiology Results Results: CHEST X-RAY = NAD - EKG Interpretations EKG Time:: 13:46 Rate & Rhythm: RATE =99 ATRIAL FIB [place]: RIGHT ED Assessment - Assessment General Assessment: ATRIAL FIB HYPOTENSION ELEVATED THYROID FUNCTIONS urinary tract infection ED Septic Shock - . Is Septic Shock (SBP<90, OR Lactate>4 mmol\L) present?: No - <6hrs of presentation: Vital Signs: Vital Signs - 8 hr 08/01/18 12:57 Temp 98.4 F HR 120 RR 21 BP 114/69 O2 Sat % 100 ED Reassessment (Disposition) - Diagnosis Diagnosis:: HYPOTENSION ATRIAL FIB ELEVATED THYROID FUNCTION URINARY TRACT INFECTION - Patient Disposition Discharge/Transfer:: Acute Care w/in this hosp Admitted to:: Telemetry Admitting Medical Physician:: Sascha Chow Condition at Disposition:: Improved
[2018-08-01 13:32] LABS: URINE SOURCE FOLEY PORT
[2018-08-01] MEDS ORDERED: Sodium Chloride 0.9% 500 ML IV ONE (13:32)
[2018-08-01 13:33] LABS: % BASOPHILS 0.7 % (0.0-2.0); % EOSINOPHILS 3.5 % (0.0-5.0); % LYMPHOCYTES 23.6 % (20.0-50.0); % MONOCYTES 8.9 % (2.0-10.0); % NEUTROPHILS 63.3 % (40.0-80.0); BASOPHILE ABSOLUTE 0.1 Th/cumm (0-0.2); EOSINOPHILE ABSOLUTE 0.3 Th/cmm (0.1-0.4); HEMATOCRIT 35.3 % (41.0-60); HEMOGLOBIN 11.9 gm/dL (12-16); LYMPHOCYTE ABSOLUTE 1.8 Th/cmm (1.5-3.0); MEAN CELL VOLUME 98.5 fl (81-100); MEAN CORPUSCULAR HEMOGLOBIN 33.2 pg (27.0-31.0); MEAN CORPUSCULAR HGB CONC 33.7 pg (28.0-36.0); MEAN PLATELET VOLUME 9.7 fl; MONOCYTE ABSOLUTE 0.7 Th/cmm (0.3-1.0); NEUTROPHILE ABSOLUTE 4.6 Th/cmm (1.8-8.0); PLATELET COUNT 304 Th/cmm (150-400); RED BLOOD COUNT 3.59 Mil/cmm (3.80-5.20); RED CELL DISTRIBUTION WIDTH 12.9 % (11.5-20.0); WHITE BLOOD COUNT 7.5 Th/cmm (4.8-10.8)
[2018-08-01 13:41] LABS: URINE BILIRUBIN NEGATIVE (NEGATIVE); URINE BLOOD MODERATE (NEGATIVE); URINE GLUCOSE (UA) NEGATIVE (NEGATIVE); URINE KETONE NEGATIVE (NEGATIVE); URINE LEUKOCYTE ESTERASE LARGE (NEGATIVE); URINE MICROSCOPIC INDICATED? YES; URINE NITRATE NEGATIVE (NEGATIVE); URINE PROTEIN 100 mg/dL (NEGATIVE)
[2018-08-01 13:41] LABS: INR 1.09 (0.5-1.4); PROTHROMBIN TIME (TEST) 11.3 SECONDS (9.5-11.5)
[2018-08-01 13:45] LABS: ALB/GLOB RATIO 1.3 (1.0-1.8); ALBUMIN 4.2 gm/dL (3.7-5.3); ALKALINE PHOSPHATASE 93 U/L (34-104); BILIRUBIN,TOTAL 0.6 mg/dL (0.3-1.0); BUN - UREA NITROGEN 20 mg/dL (7-25); CALCIUM SERUM 9.6 mg/dL (8.6-10.3); CARBON DIOXIDE 21.8 mEq/L (21.0-31.0); CHLORIDE 106 mEq/L (98-107); CREATININE - SERUM 0.5 mg/dL (0.6-1.2); GLUCOSE 176 mg/dL (70-105); POTASSIUM SERUM 3.8 mEq/L (3.5-5.1); SGOT 20 U/L (13-39); SGPT/ALT 13 U/L (7-52); SODIUM SERUM 136 mEq/L (136-145); TOTAL PROTEIN,SERUM 7.5 gm/dL (6.0-8.3)
[2018-08-01 13:51] LABS: URINE CLARITY CLOUDY (CLEAR); URINE COLOR YELLOW
[2018-08-01 13:54] LABS: URINE BACTERIA MODERATE /hpf (NONE SEEN); URINE EPITHELIAL CELLS FEW /lpf (FEW)
[2018-08-01 13:55] LABS: URINE WBC >100 /hpf (0-5)
[2018-08-01] MEDS ORDERED: Non-Formulary Item 1 EA (Melatonin [Melatonin] 6 MG) PO PRN (13:59)
[2018-08-01] MEDS ORDERED: Magnesium Hydroxide (MOM) 30 mL UDC PO PRN (13:59)
[2018-08-01] MEDS ORDERED: Ipratropium Neb 0.5 mg/2.5 mL UD HHN PRN (14:01)
[2018-08-01] MEDS ORDERED: Albuterol Nebulizer 2.5mg/3mL HHN PRN (14:01)
--- NOTE | 2018-08-01 14:51 | History & Physical ---
ADMIT DATE: 08/01/2018 INTERNAL MEDICINE HISTORY AND PHYSICAL CHIEF COMPLAINT: Generalized weakness. HISTORY OF PRESENT ILLNESS: This is an 88-year-old female with a history of left breast cancer, Alzheimer's, hypothyroidism, malnutrition, admitted from a nursing facility secondary to generalized weakness and not eating. The patient was brought into the ER, noted to have urinary tract infection. The patient is admitted for further management. PAST MEDICAL HISTORY: As mentioned in history of present illness. PAST SURGICAL HISTORY: Left breast mastectomy. ALLERGIES: No known drug allergies. MEDICATIONS: Albuterol, Atrovent, melatonin, Synthroid, iron, ascorbic acid, apixaban. FAMILY HISTORY: Noncontributory. SOCIAL HISTORY: The patient is a retirement patient requiring 24-hour total care. REVIEW OF SYSTEMS: This is limited secondary to the patient's current mental status. We will try to obtain more detailed review of system at a later date by talking to family members, ____. We will also try to get more information from the nursing staff at [facility], #[phone]. PHYSICAL EXAMINATION: VITAL SIGNS: Blood pressure 100/66, respirations 15, pulse 125, temperature 98.4. GENERAL: Elderly female, appears her stated age. NECK: Supple. No mass. LUNGS: Equal breath sounds. A few rhonchi. HEART: Regular rate and rhythm with systolic ejection murmur. ABDOMEN: Soft, globular. EXTREMITIES: Positive excoriations. NEUROLOGIC: Limited. LABORATORY DATA: WBC 7, hemoglobin 11, platelets 304. BUN 24, creatinine 0.5. UA positive, moderate bacteria and greater than 100 wbc's. ASSESSMENT: 1. Urinary tract infection. 2. Generalized weakness. 3. Left breast cancer. 4. Alzheimer's. 5. Dysphagia. 6. Hypothyroidism. 7. Malnutrition. PLAN: Continue the patient on oxygen ____ IV hydration, IV antibiotic, ____. Continue with current care with follow-up consult and recommendations. JOB# [id number]
[2018-08-01] MEDS ORDERED: Albuterol/Ipratropium Neb 3 ML AERS HHN PRN (15:02)
[2018-08-01] MEDS: D5-0.45NS 1,000 ML IV SCH (15:34)
[2018-08-01] MEDS ORDERED: Non-Formulary Item 1 EA (Protein Hydrolysate,Milk [Liquid Protein Fortifier] 30 ML) PO SCH (17:00)
[2018-08-01] MEDS ORDERED: Non-Formulary Item 1 EA (Apixaban [Eliquis] 5 MG) PO SCH (17:00)
[2018-08-02] MEDS: D5-0.45NS 1,000 ML IV SCH ×2 (02:18→16:11)
[2018-08-02] MEDS ORDERED: Levothyroxine 0.088 Mg Tab PO SCH (07:30)
[2018-08-02] MEDS: Ferrous Sulfate 325 MG TAB PO SCH (08:50)
[2018-08-02] MEDS: Multivitamin w/ Minerals Tab PO SCH (08:51)
--- NOTE | 2018-08-02 09:25 | Diagnostic Imaging Report ---
CHEST X-RAY: AP view INDICATION: pain COMPARISON: 05/08/2017 FINDINGS: The patient is rotated. Chronic interstitial lung changes are noted. There is no focal consolidation or pleural effusions The heart is normal in size. Degenerative changes of the spine are noted. Postsurgical changes of left axillary region are noted. IMPRESSION: Chronic interstitial lung changes with no focal consolidation identified Postsurgical changes of the left axillary region.
--- NOTE | 2018-08-02 12:45 | Internal Medicine Prog Note ---
Internal Medicine Subjective - Subjective Patient seen and examined:: with staff, chart reviewed Patient is:: asleep, non-verbal, non-interactive, agitated, confused Patient Complaints of:: congestion Per staff patient has:: no adverse event, no episodes of fall, tolerating meds Internal Medicine Objective - Results Result Diagrams: 08/01/18 13:07 08/01/18 13:07 Recent Labs: Laboratory Last Values WBC 7.5 Th/cmm (4.8-10.8) 08/01/18 13:07 RBC 3.59 Mil/cmm (3.80-5.20) L 08/01/18 13:07 Hgb 11.9 gm/dL (12-16) L 08/01/18 13:07 Hct 35.3 % (41.0-60) L 08/01/18 13:07 MCV 98.5 fl (81-100) 08/01/18 13:07 MCH 33.2 pg (27.0-31.0) H 08/01/18 13:07 MCHC Differential 33.7 pg (28.0-36.0) 08/01/18 13:07 RDW 12.9 % (11.5-20.0) 08/01/18 13:07 Plt Count 304 Th/cmm (150-400) 08/01/18 13:07 MPV 9.7 fl 08/01/18 13:07 Neutrophils % 63.3 % (40.0-80.0) 08/01/18 13:07 Lymphocytes % 23.6 % (20.0-50.0) 08/01/18 13:07 Monocytes % 8.9 % (2.0-10.0) 08/01/18 13:07 Eosinophils % 3.5 % (0.0-5.0) 08/01/18 13:07 Basophils % 0.7 % (0.0-2.0) 08/01/18 13:07 PT 11.3 SECONDS (9.5-11.5) 08/01/18 13:07 INR 1.09 (0.5-1.4) 08/01/18 13:07 PTT (Actin FS) 29.4 SECONDS (26.0-38.0) 08/01/18 13:07 Sodium 136 mEq/L (136-145) 08/01/18 13:07 Potassium 3.8 mEq/L (3.5-5.1) 08/01/18 13:07 Chloride 106 mEq/L (98-107) 08/01/18 13:07 Carbon Dioxide 21.8 mEq/L (21.0-31.0) 08/01/18 13:07 Anion Gap 12.0 (7.0-16.0) 08/01/18 13:07 BUN 20 mg/dL (7-25) 08/01/18 13:07 Creatinine 0.5 mg/dL (0.6-1.2) L 08/01/18 13:07 Est GFR ( Amer) TNP 08/01/18 13:07 Est GFR (Non-Af Amer) TNP 08/01/18 13:07 BUN/Creatinine Ratio 40.0 08/01/18 13:07 Glucose 176 mg/dL (70-105) H 08/01/18 13:07 Calcium 9.6 mg/dL (8.6-10.3) 08/01/18 13:07 Total Bilirubin 0.6 mg/dL (0.3-1.0) 08/01/18 13:07 AST 20 U/L (13-39) 08/01/18 13:07 ALT 13 U/L (7-52) 08/01/18 13:07 Alkaline Phosphatase 93 U/L (34-104) 08/01/18 13:07 Troponin I 0.01 ng/mL (0.01-0.05) 08/01/18 13:07 Total Protein 7.5 gm/dL (6.0-8.3) 08/01/18 13:07 Albumin 4.2 gm/dL (3.7-5.3) 08/01/18 13:07 Globulin 3.3 gm/dL 08/01/18 13:07 Albumin/Globulin Ratio 1.3 (1.0-1.8) 08/01/18 13:07 Urine Source [place] 08/01/18 10:20 Urine Color YELLOW 08/01/18 10:20 Urine Clarity CLOUDY (CLEAR) H 08/01/18 10:20 Urine pH 6.0 (4.6 - 8.0) 08/01/18 10:20 Ur Specific [place] 1.010 (1.005-1.030) 08/01/18 10:20 Urine Protein 100 mg/dL (NEGATIVE) H 08/01/18 10:20 Urine Glucose (UA) NEGATIVE mg/dL (NEGATIVE) 08/01/18 10:20 Urine Ketones NEGATIVE mg/dL (NEGATIVE) 08/01/18 10:20 Urine Blood MODERATE (NEGATIVE) H 08/01/18 10:20 Urine Nitrate NEGATIVE (NEGATIVE) 08/01/18 10:20 Urine Bilirubin NEGATIVE (NEGATIVE) 08/01/18 10:20 Urine Urobilinogen 1.0 E.U./dL (0.2 - 1.0) 08/01/18 10:20 Ur Leukocyte Esterase LARGE (NEGATIVE) H 08/01/18 10:20 Urine RBC 2-5 /hpf (0-5) 08/01/18 10:20 Urine WBC >100 /hpf (0-5) H 08/01/18 10:20 Ur Epithelial Cells FEW /lpf (FEW) 08/01/18 10:20 Urine Bacteria MODERATE /hpf (NONE SEEN) H 08/01/18 10:20 Hyaline Casts 2-5 /lpf (0-2) H 08/01/18 10:20 - Physical Exam Vitals and I&O: Vital Signs Temp 97.5 F 08/02/18 11:56 Pulse 100 08/02/18 11:56 Resp 18 08/02/18 11:56 BP 132/67 08/02/18 11:56 Pulse Ox 98 08/02/18 11:56 Intake & Output 08/01/18 08/02/18 08/02/18 18:59 06:59 18:59 Intake Total 100 938.667 Balance 100 938.667 Weight (lbs) 43.318 kg 43.091 kg Intake: Intake, IV Amount 50 908.667 Cefepime 1 gm In Dextrose 50 50 5% 50 ml @ 100 mls/hr IV Q12H [facility] Rx#:[id number] D5-0.45NS 1,000 ml @ 80 858.667 mls/hr IV .[id number] [facility] Rx #:[id number] Oral 50 30 Other: # Voids 1 3 # Bowel Movements 1 1 Stool Characteristics Soft Soft Soft Brown Brown Weight Source Bedscale Bedscale Active Medications: Current Medications Acetaminophen (Tylenol) 650 mg PO Q4H PRN PRN Reason: Pain Or Fever above 101 Stop: 09/30/18 14:00 Last Admin: 08/01/18 20:07 Dose: 650 mg Acetaminophen/Hydrocodone Bitart ([place] 5mg/325mg) 1 tab PO Q6H PRN PRN Reason: MOD/SEVERE PAIN Stop: 09/30/18 13:58 Albuterol/Ipratropium (Duoneb Neb) 3 ml HHN Q2HRT PRN PRN Reason: Shortness of Breath Stop: 09/30/18 15:01 Ascorbic Acid (Vitamin C) 500 mg PO DAILY [facility] Stop: 10/01/18 08:59 Last Admin: 08/02/18 08:51 Dose: 500 mg Digoxin (Lanoxin) 0.125 mg IVP DAILY [facility] Stop: 10/01/18 08:59 Last Admin: 08/02/18 08:58 Dose: 0.125 mg Docusate Sodium (Colace) 100 mg PO BID [facility] Stop: 09/30/18 16:59 Last Admin: 08/02/18 08:50 Dose: 100 mg Ferrous Sulfate (Iron) 325 mg PO DAILY [facility] Stop: 10/01/18 08:59 Last Admin: 08/02/18 08:50 Dose: 325 mg Cefepime HCl 1 gm/ Dextrose 50 mls @ 100 mls/hr IV Q12H [facility] Stop: 09/30/18 15:59 Last Infusion: 08/02/18 05:25 Dose: Infused Dextrose/Sodium Chloride (D5-0.45ns) 1,000 mls @ 80 mls/hr IV .[id number] [facility] Stop: 09/30/18 14:59 Last Admin: 08/02/18 02:18 Dose: 80 mls/hr Levothyroxine Sodium 0.1 mg/ (Levothyroxine Sodium 0.05 mg) 0.15 mg PO QDAC [facility] Stop: 10/01/18 07:29 Last Admin: 08/02/18 08:50 Dose: 0.15 mg Lorazepam (Ativan) 0.5 mg IVP Q8HR PRN; Protocol PRN Reason: Anxiety Stop: 09/30/18 21:14 Last Admin: 08/01/18 21:32 Dose: 0.5 mg Magnesium Hydroxide (Milk Of Magnesia) 30 ml PO HS PRN PRN Reason: Constipation Stop: 09/30/18 13:58 Megestrol Acetate (Megace) 400 mg PO BID [facility] Stop: 09/30/18 16:59 Last Admin: 08/02/18 08:50 Dose: 400 mg Memantine (Namenda) 5 mg PO BID [facility] Stop: 09/30/18 16:59 Last Admin: 08/02/18 08:50 Dose: 5 mg Ondansetron HCl (Zofran) 4 mg IV Q8H PRN PRN Reason: Nausea / Vomiting Stop: 09/30/18 14:00 Rivaroxaban (Xarelto) 10 mg PO DAILY [facility] Stop: 10/01/18 08:59 Last Admin: 08/02/18 08:50 Dose: 10 mg General: congested, demented HEENT: NC/AT, PERRLA Neck: Supple, No JVD, No LAD, deformity Lungs: wheezing, rales, ronchi Cardiovascular: RRR, Normal S1, Normal S2, with murmur Abdomen: soft, non-tender, non-distended, positive bowel sound Extremities: excoriation, contracture, deformity Neurological: no change - Procedures Procedures: Procedures Procedure Code Date EXCISION OF LEFT BREAST, OPEN APPROACH, DIAGNOSTIC [id number] 05/08/17 [place] [address] 05/08/17 RESECTION OF LEFT BREAST, OPEN APPROACH [id number] 05/08/17 Internal Medicine Assmt/Plan - Assessment Assessment: ASSESSMENT: 1. Urinary tract infection. 2. Generalized weakness. 3. Left breast cancer. 4. Alzheimer's. 5. Dysphagia. 6. Hypothyroidism. 7. Malnutrition. - Plan Plan: PLAN: Continue the patient on oxygen ___cont _ IV hydration, IV antibiotic, __ maxipime__. Continue with current care with follow-up w consult and recommendations.
[2018-08-02] MEDS: Hydrocodone/APAP 5mg/325mg Tab PO PRN (22:33)
[2018-08-03] MEDS: D5-0.45NS 1,000 ML IV SCH ×2 (03:54→18:16)
[2018-08-03 06:12] LABS: % BASOPHILS 0.7 % (0.0-2.0); % EOSINOPHILS 2.5 % (0.0-5.0); % LYMPHOCYTES 22.3 % (20.0-50.0); % MONOCYTES 7.8 % (2.0-10.0); % NEUTROPHILS 66.7 % (40.0-80.0); EOSINOPHILE ABSOLUTE 0.1 Th/cmm (0.1-0.4); HEMATOCRIT 33.6 % (41.0-60); HEMOGLOBIN 11.4 gm/dL (12-16); LYMPHOCYTE ABSOLUTE 1.3 Th/cmm (1.5-3.0); MEAN CORPUSCULAR HEMOGLOBIN 33.8 pg (27.0-31.0); MEAN CORPUSCULAR HGB CONC 33.8 pg (28.0-36.0); MEAN PLATELET VOLUME 8.9 fl; MONOCYTE ABSOLUTE 0.5 Th/cmm (0.3-1.0); PLATELET COUNT 282 Th/cmm (150-400); RED BLOOD COUNT 3.36 Mil/cmm (3.80-5.20); RED CELL DISTRIBUTION WIDTH 12.7 % (11.5-20.0); WHITE BLOOD COUNT 5.9 Th/cmm (4.8-10.8)
[2018-08-03 06:30] LABS: ALB/GLOB RATIO 1.3 (1.0-1.8); ALKALINE PHOSPHATASE 81 U/L (34-104); ANION GAP 11.3 (7.0-16.0); BILIRUBIN,TOTAL 0.8 mg/dL (0.3-1.0); BUN - UREA NITROGEN 12 mg/dL (7-25); CALCIUM SERUM 9.2 mg/dL (8.6-10.3); CARBON DIOXIDE 18.5 mEq/L (21.0-31.0); CHLORIDE 109 mEq/L (98-107); CREATININE - SERUM 0.5 mg/dL (0.6-1.2); GLUCOSE 134 mg/dL (70-105); MAGNESIUM 1.9 mg/dL (1.9-2.7); POTASSIUM SERUM 3.8 mEq/L (3.5-5.1); SGOT 13 U/L (13-39); SGPT/ALT 9 U/L (7-52); SODIUM SERUM 135 mEq/L (136-145); TOTAL PROTEIN,SERUM 7.1 gm/dL (6.0-8.3)
[2018-08-03] MEDS: Multivitamin w/ Minerals Tab PO SCH (08:40)
[2018-08-03] MEDS: Ferrous Sulfate 325 MG TAB PO SCH (08:40)
--- NOTE | 2018-08-03 12:49 | Internal Medicine Prog Note ---
Internal Medicine Subjective - Subjective Service Date: 08/03/18 Patient seen and examined:: with staff Patient is:: awake, non-verbal, non-interactive, confused Patient Complaints of:: congestion Per staff patient has:: no adverse event, no episodes of fall, tolerating meds Internal Medicine Objective - Results Result Diagrams: 08/03/18 06:00 08/03/18 06:00 Recent Labs: Laboratory Last Values WBC 5.9 Th/cmm (4.8-10.8) 08/03/18 06:00 RBC 3.36 Mil/cmm (3.80-5.20) L 08/03/18 06:00 Hgb 11.4 gm/dL (12-16) L 08/03/18 06:00 Hct 33.6 % (41.0-60) L 08/03/18 06:00 MCV 100.0 fl (81-100) 08/03/18 06:00 MCH 33.8 pg (27.0-31.0) H 08/03/18 06:00 MCHC Differential 33.8 pg (28.0-36.0) 08/03/18 06:00 RDW 12.7 % (11.5-20.0) 08/03/18 06:00 Plt Count 282 Th/cmm (150-400) 08/03/18 06:00 MPV 8.9 fl 08/03/18 06:00 Neutrophils % 66.7 % (40.0-80.0) 08/03/18 06:00 Lymphocytes % 22.3 % (20.0-50.0) 08/03/18 06:00 Monocytes % 7.8 % (2.0-10.0) 08/03/18 06:00 Eosinophils % 2.5 % (0.0-5.0) 08/03/18 06:00 Basophils % 0.7 % (0.0-2.0) 08/03/18 06:00 PT 11.3 SECONDS (9.5-11.5) 08/01/18 13:07 INR 1.09 (0.5-1.4) 08/01/18 13:07 PTT (Actin FS) 29.4 SECONDS (26.0-38.0) 08/01/18 13:07 Sodium 135 mEq/L (136-145) L 08/03/18 06:00 Potassium 3.8 mEq/L (3.5-5.1) 08/03/18 06:00 Chloride 109 mEq/L (98-107) H 08/03/18 06:00 Carbon Dioxide 18.5 mEq/L (21.0-31.0) L 08/03/18 06:00 Anion Gap 11.3 (7.0-16.0) 08/03/18 06:00 BUN 12 mg/dL (7-25) 08/03/18 06:00 Creatinine 0.5 mg/dL (0.6-1.2) L 08/03/18 06:00 Est GFR ( Amer) TNP 08/03/18 06:00 Est GFR (Non-Af Amer) TNP 08/03/18 06:00 BUN/Creatinine Ratio 24.0 08/03/18 06:00 Glucose 134 mg/dL (70-105) H 08/03/18 06:00 Calcium 9.2 mg/dL (8.6-10.3) 08/03/18 06:00 Magnesium 1.9 mg/dL (1.9-2.7) 08/03/18 06:00 Total Bilirubin 0.8 mg/dL (0.3-1.0) 08/03/18 06:00 AST 13 U/L (13-39) 08/03/18 06:00 ALT 9 U/L (7-52) 08/03/18 06:00 Alkaline Phosphatase 81 U/L (34-104) 08/03/18 06:00 Troponin I 0.01 ng/mL (0.01-0.05) 08/01/18 13:07 B-Natriuretic Peptide 398.0 pg/mL (5.0-100.0) H 08/03/18 06:00 Total Protein 7.1 gm/dL (6.0-8.3) 08/03/18 06:00 Albumin 4.0 gm/dL (3.7-5.3) 08/03/18 06:00 Globulin 3.1 gm/dL 08/03/18 06:00 Albumin/Globulin Ratio 1.3 (1.0-1.8) 08/03/18 06:00 TSH 9.26 uIU/ml (0.34-5.60) H 08/03/18 06:00 Urine Source [place] 08/01/18 10:20 Urine Color YELLOW 08/01/18 10:20 Urine Clarity CLOUDY (CLEAR) H 08/01/18 10:20 Urine pH 6.0 (4.6 - 8.0) 08/01/18 10:20 Ur Specific [place] 1.010 (1.005-1.030) 08/01/18 10:20 Urine Protein 100 mg/dL (NEGATIVE) H 08/01/18 10:20 Urine Glucose (UA) NEGATIVE mg/dL (NEGATIVE) 08/01/18 10:20 Urine Ketones NEGATIVE mg/dL (NEGATIVE) 08/01/18 10:20 Urine Blood MODERATE (NEGATIVE) H 08/01/18 10:20 Urine Nitrate NEGATIVE (NEGATIVE) 08/01/18 10:20 Urine Bilirubin NEGATIVE (NEGATIVE) 08/01/18 10:20 Urine Urobilinogen 1.0 E.U./dL (0.2 - 1.0) 08/01/18 10:20 Ur Leukocyte Esterase LARGE (NEGATIVE) H 08/01/18 10:20 Urine RBC 2-5 /hpf (0-5) 08/01/18 10:20 Urine WBC >100 /hpf (0-5) H 08/01/18 10:20 Ur Epithelial Cells FEW /lpf (FEW) 08/01/18 10:20 Urine Bacteria MODERATE /hpf (NONE SEEN) H 08/01/18 10:20 Hyaline Casts 2-5 /lpf (0-2) H 08/01/18 10:20 - Physical Exam Vitals and I&O: Vital Signs Temp 98.4 F 08/03/18 11:27 Pulse 90 08/03/18 11:27 Resp 18 08/03/18 11:27 BP 115/68 08/03/18 11:27 Pulse Ox 98 08/03/18 11:27 Intake & Output 08/02/18 08/03/18 08/03/18 18:59 06:59 18:59 Intake Total 1250 1205.333 Balance 1250 1205.333 Weight (lbs) 95 lb 93 lb 14.4 oz Intake: Intake, IV Amount 1050 1155.333 Cefepime 1 gm In Dextrose 50 50 5% 50 ml @ 100 mls/hr IV Q12H [facility] Rx#:[id number] D5-0.45NS 1,000 ml @ 80 1000 1105.333 mls/hr IV .[id number] [facility] Rx #:[id number] Oral 200 50 Other: # Voids 4 3 # Bowel Movements 1 0 Stool Characteristics Soft Brown Weight Source Bedscale Bedscale Active Medications: Current Medications Acetaminophen (Tylenol) 650 mg PO Q4H PRN PRN Reason: Pain Or Fever above 101 Stop: 09/30/18 14:00 Last Admin: 08/01/18 20:07 Dose: 650 mg Acetaminophen/Hydrocodone Bitart ([place] 5mg/325mg) 1 tab PO Q6H PRN PRN Reason: MOD/SEVERE PAIN Stop: 09/30/18 13:58 Last Admin: 08/02/18 22:33 Dose: 1 tab Albuterol/Ipratropium (Duoneb Neb) 3 ml HHN Q2HRT PRN PRN Reason: Shortness of Breath Stop: 09/30/18 15:01 Ascorbic Acid (Vitamin C) 500 mg PO DAILY [facility] Stop: 10/01/18 08:59 Last Admin: 08/03/18 08:40 Dose: 500 mg Digoxin (Lanoxin) 0.125 mg IVP DAILY [facility] Stop: 10/01/18 08:59 Last Admin: 08/03/18 08:40 Dose: 0.125 mg Docusate Sodium (Colace) 100 mg PO BID [facility] Stop: 09/30/18 16:59 Last Admin: 08/03/18 08:40 Dose: 100 mg Ferrous Sulfate (Iron) 325 mg PO DAILY [facility] Stop: 10/01/18 08:59 Last Admin: 08/03/18 08:40 Dose: 325 mg Cefepime HCl 1 gm/ Dextrose 50 mls @ 100 mls/hr IV Q12H [facility] Stop: 09/30/18 15:59 Last Infusion: 08/03/18 04:18 Dose: Infused Dextrose/Sodium Chloride (D5-0.45ns) 1,000 mls @ 80 mls/hr IV .[id number] [facility] Stop: 09/30/18 14:59 Last Infusion: 08/03/18 06:00 Dose: 80 mls/hr Levothyroxine Sodium 0.1 mg/ (Levothyroxine Sodium 0.05 mg) 0.15 mg PO QDAC [facility] Stop: 10/01/18 07:29 Last Admin: 08/03/18 06:59 Dose: 0.15 mg Lorazepam (Ativan) 0.5 mg IVP Q8HR PRN; Protocol PRN Reason: Anxiety Stop: 09/30/18 21:14 Last Admin: 08/03/18 09:04 Dose: 0.5 mg Magnesium Hydroxide (Milk Of Magnesia) 30 ml PO HS PRN PRN Reason: Constipation Stop: 09/30/18 13:58 Megestrol Acetate (Megace) 400 mg PO BID [facility] Stop: 09/30/18 16:59 Last Admin: 08/03/18 08:40 Dose: 400 mg Memantine (Namenda) 5 mg PO BID [facility] Stop: 09/30/18 16:59 Last Admin: 08/03/18 08:40 Dose: 5 mg Ondansetron HCl (Zofran) 4 mg IV Q8H PRN PRN Reason: Nausea / Vomiting Stop: 09/30/18 14:00 Rivaroxaban (Xarelto) 10 mg PO DAILY [facility] Stop: 10/01/18 08:59 Last Admin: 08/03/18 08:40 Dose: 10 mg General: congested, demented HEENT: NC/AT, PERRLA Neck: Supple, No JVD, No LAD, deformity Lungs: wheezing, rales, ronchi Cardiovascular: RRR, Normal S1, Normal S2, with murmur Abdomen: soft, non-tender, non-distended, positive bowel sound Extremities: excoriation, contracture, deformity Neurological: no change - Procedures Procedures: Procedures Procedure Code Date EXCISION OF LEFT BREAST, OPEN APPROACH, DIAGNOSTIC [id number] 05/08/[address] [place] [address] 05/08/17 RESECTION OF LEFT BREAST, OPEN APPROACH [id number] 05/08/17 Internal Medicine Assmt/Plan - Assessment Assessment: 1. Urinary tract infection. 2. Generalized weakness. 3. Left breast cancer. 4. Alzheimer's. 5. Dysphagia. 6. Hypothyroidism. 7. Malnutrition. - Plan Plan: continue ivabx follow up labs in am continue current plan of care
[2018-08-03] MEDS: Hydrocodone/APAP 5mg/325mg Tab PO PRN (23:51)
[2018-08-04] MEDS: D5-0.45NS 1,000 ML IV SCH (05:13)
[2018-08-04 06:29] LABS: % BASOPHILS 0.8 % (0.0-2.0); % EOSINOPHILS 2.5 % (0.0-5.0); % LYMPHOCYTES 20.9 % (20.0-50.0); % MONOCYTES 8.1 % (2.0-10.0); % NEUTROPHILS 67.7 % (40.0-80.0); BASOPHILE ABSOLUTE 0.1 Th/cumm (0-0.2); EOSINOPHILE ABSOLUTE 0.2 Th/cmm (0.1-0.4); LYMPHOCYTE ABSOLUTE 1.4 Th/cmm (1.5-3.0); MEAN CELL VOLUME 99.1 fl (81-100); MEAN CORPUSCULAR HEMOGLOBIN 34.2 pg (27.0-31.0); MEAN CORPUSCULAR HGB CONC 34.5 pg (28.0-36.0); MEAN PLATELET VOLUME 9.1 fl; MONOCYTE ABSOLUTE 0.5 Th/cmm (0.3-1.0); NEUTROPHILE ABSOLUTE 4.4 Th/cmm (1.8-8.0); PLATELET COUNT 248 Th/cmm (150-400); RED BLOOD COUNT 2.93 Mil/cmm (3.80-5.20); RED CELL DISTRIBUTION WIDTH 12.3 % (11.5-20.0); WHITE BLOOD COUNT 6.6 Th/cmm (4.8-10.8)
[2018-08-04 06:34] LABS: ANION GAP 0.2 (7.0-16.0); BUN - UREA NITROGEN 8 mg/dL (7-25); CHLORIDE 104 mEq/L (98-107); CREATININE - SERUM 0.8 mg/dL (0.6-1.2); POTASSIUM SERUM 3.2 mEq/L (3.5-5.1)
[2018-08-04] MEDS: Levothyroxine 0.1 Mg Tab PO SCH (07:39)
[2018-08-04] MEDS: Multivitamin w/ Minerals Tab PO SCH (09:20)
[2018-08-04] MEDS: Ferrous Sulfate 325 MG TAB PO SCH (09:20)
[2018-08-04] MEDS ORDERED: Potassium Chloride 40 MEQ, Lidocaine 1% 20mL Vial 25 MG in Sodium Chloride 0.9% 250 ML IV ONE (10:00)
--- NOTE | 2018-08-04 13:09 | Internal Medicine Prog Note ---
Internal Medicine Subjective - Subjective Service Date: 08/04/18 Patient is:: awake, non-verbal, non-interactive, confused Patient Complaints of:: congestion Per staff patient has:: no adverse event, no episodes of fall, tolerating meds Internal Medicine Objective - Results Result Diagrams: 08/04/18 05:30 08/04/18 05:30 Recent Labs: Laboratory Last Values WBC 6.6 Th/cmm (4.8-10.8) 08/04/18 05:30 RBC 2.93 Mil/cmm (3.80-5.20) L 08/04/18 05:30 Hgb 10.0 gm/dL (12-16) L 08/04/18 05:30 Hct 29.0 % (41.0-60) L 08/04/18 05:30 MCV 99.1 fl (81-100) 08/04/18 05:30 MCH 34.2 pg (27.0-31.0) H 08/04/18 05:30 MCHC Differential 34.5 pg (28.0-36.0) 08/04/18 05:30 RDW 12.3 % (11.5-20.0) 08/04/18 05:30 Plt Count 248 Th/cmm (150-400) 08/04/18 05:30 MPV 9.1 fl 08/04/18 05:30 Neutrophils % 67.7 % (40.0-80.0) 08/04/18 05:30 Lymphocytes % 20.9 % (20.0-50.0) 08/04/18 05:30 Monocytes % 8.1 % (2.0-10.0) 08/04/18 05:30 Eosinophils % 2.5 % (0.0-5.0) 08/04/18 05:30 Basophils % 0.8 % (0.0-2.0) 08/04/18 05:30 PT 11.3 SECONDS (9.5-11.5) 08/01/18 13:07 INR 1.09 (0.5-1.4) 08/01/18 13:07 PTT (Actin FS) 29.4 SECONDS (26.0-38.0) 08/01/18 13:07 Sodium 118 mEq/L (136-145) L* D 08/04/18 05:30 Potassium 3.2 mEq/L (3.5-5.1) L 08/04/18 05:30 Chloride 104 mEq/L (98-107) 08/04/18 05:30 Carbon Dioxide 17.0 mEq/L (21.0-31.0) L 08/04/18 05:30 Anion Gap 0.2 (7.0-16.0) L 08/04/18 05:30 BUN 8 mg/dL (7-25) 08/04/18 05:30 Creatinine 0.8 mg/dL (0.6-1.2) 08/04/18 05:30 Est GFR ( Amer) TNP 08/04/18 05:30 Est GFR (Non-Af Amer) TNP 08/04/18 05:30 BUN/Creatinine Ratio 10.0 08/04/18 05:30 Glucose 135 mg/dL (70-105) H D 08/04/18 08:00 POC Glucose 134 MG/DL (70 - 105) H 08/04/18 07:44 Calcium 8.0 mg/dL (8.6-10.3) L 08/04/18 05:30 Magnesium 1.9 mg/dL (1.9-2.7) 08/03/18 06:00 Total Bilirubin 0.8 mg/dL (0.3-1.0) 08/03/18 06:00 AST 13 U/L (13-39) 08/03/18 06:00 ALT 9 U/L (7-52) 08/03/18 06:00 Alkaline Phosphatase 81 U/L (34-104) 08/03/18 06:00 Troponin I 0.01 ng/mL (0.01-0.05) 08/01/18 13:07 B-Natriuretic Peptide 398.0 pg/mL (5.0-100.0) H 08/03/18 06:00 Total Protein 7.1 gm/dL (6.0-8.3) 08/03/18 06:00 Albumin 4.0 gm/dL (3.7-5.3) 08/03/18 06:00 Globulin 3.1 gm/dL 08/03/18 06:00 Albumin/Globulin Ratio 1.3 (1.0-1.8) 08/03/18 06:00 TSH 9.26 uIU/ml (0.34-5.60) H 08/03/18 06:00 Urine Source [place] 08/01/18 10:20 Urine Color YELLOW 08/01/18 10:20 Urine Clarity CLOUDY (CLEAR) H 08/01/18 10:20 Urine pH 6.0 (4.6 - 8.0) 08/01/18 10:20 Ur Specific [place] 1.010 (1.005-1.030) 08/01/18 10:20 Urine Protein 100 mg/dL (NEGATIVE) H 08/01/18 10:20 Urine Glucose (UA) NEGATIVE mg/dL (NEGATIVE) 08/01/18 10:20 Urine Ketones NEGATIVE mg/dL (NEGATIVE) 08/01/18 10:20 Urine Blood MODERATE (NEGATIVE) H 08/01/18 10:20 Urine Nitrate NEGATIVE (NEGATIVE) 08/01/18 10:20 Urine Bilirubin NEGATIVE (NEGATIVE) 08/01/18 10:20 Urine Urobilinogen 1.0 E.U./dL (0.2 - 1.0) 08/01/18 10:20 Ur Leukocyte Esterase LARGE (NEGATIVE) H 08/01/18 10:20 Urine RBC 2-5 /hpf (0-5) 08/01/18 10:20 Urine WBC >100 /hpf (0-5) H 08/01/18 10:20 Ur Epithelial Cells FEW /lpf (FEW) 08/01/18 10:20 Urine Bacteria MODERATE /hpf (NONE SEEN) H 08/01/18 10:20 Hyaline Casts 2-5 /lpf (0-2) H 08/01/18 10:20 - Physical Exam Vitals and I&O: Vital Signs Temp 97.6 F 08/04/18 11:45 Pulse 97 08/04/18 11:45 Resp 19 08/04/18 11:45 BP 106/67 08/04/18 11:45 Pulse Ox 98 08/04/18 11:45 Intake & Output 08/03/18 08/04/18 08/04/18 18:59 06:59 18:59 Intake Total 982 876 Balance 982 876 Weight (lbs) 93 lb Intake: Intake, IV Amount 882 876 Cefepime 1 gm In Dextrose 50 5% 50 ml @ 100 mls/hr IV Q12H [facility] Rx#:[id number] D5-0.45NS 1,000 ml @ 80 832 876 mls/hr IV .[id number] [facility] Rx #:[id number] Oral 100 Other: # Voids 3 # Bowel Movements 0 Weight Source Bedscale Active Medications: Current Medications Acetaminophen (Tylenol) 650 mg PO Q4H PRN PRN Reason: Pain Or Fever above 101 Stop: 09/30/18 14:00 Last Admin: 08/01/18 20:07 Dose: 650 mg Acetaminophen/Hydrocodone Bitart ([place] 5mg/325mg) 1 tab PO Q6H PRN PRN Reason: MOD/SEVERE PAIN Stop: 09/30/18 13:58 Last Admin: 08/03/18 23:51 Dose: 1 tab Albuterol/Ipratropium (Duoneb Neb) 3 ml HHN Q2HRT PRN PRN Reason: Shortness of Breath Stop: 09/30/18 15:01 Ascorbic Acid (Vitamin C) 500 mg PO DAILY [facility] Stop: 10/01/18 08:59 Last Admin: 08/04/18 09:20 Dose: 500 mg Digoxin (Lanoxin) 0.125 mg IVP DAILY [facility] Stop: 10/01/18 08:59 Last Admin: 08/04/18 09:21 Dose: 0.125 mg Docusate Sodium (Colace) 100 mg PO BID [facility] Stop: 09/30/18 16:59 Last Admin: 08/04/18 09:20 Dose: 100 mg Ferrous Sulfate (Iron) 325 mg PO DAILY [facility] Stop: 10/01/18 08:59 Last Admin: 08/04/18 09:20 Dose: 325 mg Cefepime HCl 1 gm/ Dextrose 50 mls @ 100 mls/hr IV Q12H [facility] Stop: 09/30/18 15:59 Last Admin: 08/04/18 05:02 Dose: 100 mls/hr Dextrose/Sodium Chloride (D5-0.9%Ns) 1,000 mls @ 80 mls/hr IV .[id number] [facility] Stop: 10/03/18 07:59 Potassium Chloride 40 meq/Lidocaine HCl 25 mg/ Sodium Chloride 272.5 mls @ 68 mls/hr IV X1 ONE Stop: 08/04/18 14:00 Last Admin: 08/04/18 09:45 Dose: 68 mls/hr Levothyroxine Sodium (Synthroid) 0.188 mg PO QDAC [facility] Stop: 10/03/18 07:29 Last Admin: 08/04/18 07:39 Dose: 0.188 mg Levothyroxine Sodium 0.1 mg/ (Levothyroxine Sodium 0.088 mg) 0.188 mg PO QDAC [facility] Stop: 10/03/18 07:29 Lorazepam (Ativan) 0.5 mg IVP Q8HR PRN; Protocol PRN Reason: Anxiety Stop: 09/30/18 21:14 Last Admin: 08/03/18 21:02 Dose: 0.5 mg Magnesium Hydroxide (Milk Of Magnesia) 30 ml PO HS PRN PRN Reason: Constipation Stop: 09/30/18 13:58 Megestrol Acetate (Megace) 400 mg PO BID [facility] Stop: 09/30/18 16:59 Last Admin: 08/04/18 09:20 Dose: 400 mg Memantine (Namenda) 5 mg PO BID [facility] Stop: 09/30/18 16:59 Last Admin: 08/04/18 09:20 Dose: 5 mg Ondansetron HCl (Zofran) 4 mg IV Q8H PRN PRN Reason: Nausea / Vomiting Stop: 09/30/18 14:00 Rivaroxaban (Xarelto) 10 mg PO DAILY [facility] Stop: 10/01/18 08:59 Last Admin: 08/04/18 09:20 Dose: 10 mg General: congested, demented HEENT: NC/AT, PERRLA Neck: Supple, No JVD, No LAD, deformity Lungs: wheezing, rales, ronchi Cardiovascular: RRR, Normal S1, Normal S2, with murmur Abdomen: soft, non-tender, non-distended, positive bowel sound Extremities: excoriation, contracture, deformity Neurological: no change - Procedures Procedures: Procedures Procedure Code Date EXCISION OF LEFT BREAST, OPEN APPROACH, DIAGNOSTIC [id number] 05/08/17 [place] [address] 05/08/17 RESECTION OF LEFT BREAST, OPEN APPROACH [id number] 05/08/17 Internal Medicine Assmt/Plan - Assessment Assessment: 1. Urinary tract infection. 2. Generalized weakness. 3. Left breast cancer. 4. Alzheimer's. 5. Dysphagia. 6. Hypothyroidism. 7. Malnutrition. - Plan Plan: LTAC EVAL continue ivabx follow up labs in am continue current plan of care Nutritional Asmnt/Malnutr-PDOC - Dietary Evaluation Malnutrition Findings (Please click <Entered> for more info): Nutritional Asmnt/Malnutrition Start: 08/03/18 16: 31 Text: Status: Complete Freq: Protocol: Document 08/03/18 16:31 LCHENG (Rec: 08/03/18 16:42 LCHENG [email or web address]) Nutritional Asmnt/Malnutrition Patient General Information Nutritional Screening High Risk Diagnosis UTI, general weakness, breast CA Pertinent Medical Hx/Surgical Hx brast CA, alzheimers, malnutrition , hypothyroidism Subjective Information Pt seen sleeping in bed at time of visit, not answering RD greeting. Per nurse note, pt was very confused, screaming on/off. Titi score 10 noted. PO intake 25% on pureed nectar ghick diet per EMR. Current Diet Order/ Nutrition Support pureed, nectar thick Pertinent Medications vit C, D5-0.45ns, colace, iron , synthroid, synthroid, megace Pertinent Labs 08/03 Na 135, Cl 109, Cr 0.5, glucose 134 Nutritional Hx/Data Height 5 ft 3 in Height (Calculated Centimeters) 160.0 Current Weight (lbs) 94 lb Weight (Calculated Kilograms) 42.6 Weight (Calculated Grams) 28891.7 [place] Body Weight 115 Body Mass Index (BMI) 16.6 Weight Status Underweight GI Symptoms GI Symptoms None Difficult in: None Skin Integrity/Comment: skin tears to left buttocks, left thigh, medial sacrum, abrasion to left lower leg, scar to right buttocks Current %PO Poor (25-49%) Estimated Nutritional Goals BEE in Kcals: Using Current wt Calories/Kcals/Kg 30-35 Kcals Calculated 4566-1139 Protein: Using Current wt Protein g/k.2-1.4 Protein Calculated 52-60 Fluid: ml 1290-1505ml (1ml/kcal) Nutritional Problem 1. Problem Problem inadequate food intake Etiology possible poor appetite and confusion Signs/Symptoms: PO intake 25% Malnutrition Alert Is there a minimum of two criteria No selected? Query Text:Check all the applicable criteria. A minimum of two criteria are recommended for diagnosis of either severe or non-severe malnutrition. Intervention/Recommendation Comments 1. Continue with pureed nectar thick diet as ordered. 2. For additional kcal/protein , add Glucerna TID, considering elevated glucose. 2. Monitor PO intake, wt, labs and skin integrity 3. F/U as high risk in 2-3 days, 08/05-08/06 Expected Outcomes/Goals Expected Outcomes/Goals 1. PO intake to meet at least 75% of nutritional needs. 2. Wt stability, change toward to IBW, skin to remain intact , labs to approach WNL.
[2018-08-04] MEDS: D5-0.9%NS 1,000 ML IV SCH (23:34)
[2018-08-05] MEDS: Hydrocodone/APAP 5mg/325mg Tab PO PRN (00:08)
[2018-08-05 06:03] LABS: % BASOPHILS 0.9 % (0.0-2.0); % EOSINOPHILS 3.5 % (0.0-5.0); % LYMPHOCYTES 22.9 % (20.0-50.0); % MONOCYTES 9.1 % (2.0-10.0); % NEUTROPHILS 63.6 % (40.0-80.0); BASOPHILE ABSOLUTE 0.1 Th/cumm (0-0.2); EOSINOPHILE ABSOLUTE 0.3 Th/cmm (0.1-0.4); HEMATOCRIT 34.8 % (41.0-60); HEMOGLOBIN 11.5 gm/dL (12-16); LYMPHOCYTE ABSOLUTE 1.7 Th/cmm (1.5-3.0); MEAN CELL VOLUME 100.5 fl (81-100); MEAN CORPUSCULAR HEMOGLOBIN 33.1 pg (27.0-31.0); MEAN PLATELET VOLUME 8.6 fl; MONOCYTE ABSOLUTE 0.7 Th/cmm (0.3-1.0); NEUTROPHILE ABSOLUTE 4.5 Th/cmm (1.8-8.0); PLATELET COUNT 279 Th/cmm (150-400); RED BLOOD COUNT 3.46 Mil/cmm (3.80-5.20); RED CELL DISTRIBUTION WIDTH 12.5 % (11.5-20.0); WHITE BLOOD COUNT 7.3 Th/cmm (4.8-10.8)
[2018-08-05 06:19] LABS: ANION GAP 11.1 (7.0-16.0); BUN - UREA NITROGEN 8 mg/dL (7-25); CARBON DIOXIDE 20.1 mEq/L (21.0-31.0); CHLORIDE 110 mEq/L (98-107); CREATININE - SERUM 0.5 mg/dL (0.6-1.2); GLUCOSE 145 mg/dL (70-105); POTASSIUM SERUM 4.2 mEq/L (3.5-5.1)
[2018-08-05 06:21] LABS: SODIUM SERUM 137 mEq/L (136-145)
[2018-08-05] MEDS: Levothyroxine 0.1 Mg Tab PO SCH (07:39)
[2018-08-05 07:46] LABS: SODIUM SERUM 118 mEq/L (136-145)
[2018-08-05] MEDS: Multivitamin w/ Minerals Tab PO SCH (09:52)
[2018-08-05] MEDS: Ferrous Sulfate 325 MG TAB PO SCH (09:52)
[2018-08-05] MEDS: D5-0.9%NS 1,000 ML IV SCH (12:29)
[2018-08-05 13:26] LABS: GLUCOSE 612 mg/dL (70-105)
--- NOTE | 2018-08-05 16:32 | Discharge Summary ---
DATE OF DISCHARGE: 08/05/2018 DISCHARGE DIAGNOSES: Urinary tract infection, generalized weakness, left breast CA, Alzheimer's, dysphagia, hypothyroidism and malnutrition. HISTORY OF PRESENT ILLNESS: An 88-year-old female with a history of left breast CA, Alzheimer's, hypothyroidism, malnutrition, admitted from nursing facility secondary to generalized weakness and not eating. The patient was brought into the ER, noted to have UTI. PHYSICAL EXAMINATION: GENERAL: Elderly female, awake with confusion, no apparent distress. VITAL SIGNS: Stable. HEENT: Normocephalic, atraumatic. NECK: Supple. No mass. LUNGS: Clear bilaterally. HEART: Regular rhythm. ABDOMEN: Soft and nontender. HOSPITAL COURSE: During the hospital stay, the patient was admitted to the telemetry unit. The patient was kept on IV fluids for hydration as well as empiric IV antibiotic. Due to patient's weakness, the patient also had an episode of sodium of 118 that was corrected by having sodium chloride and IV fluid. Due to patient's increase in weakness then decided for patient to be transferred to [facility]. CONDITION UPON DISCHARGE: Fair. DISPOSITION: [facility] JOB# [id number]
[2018-08-06 12:16] LABS: FOLIC ACID 16.2 ng/mL (>3.0)
== END 2018-08-05 16:30 | DRG 689 ==
LOC: ER 12:47 → TELE 14:15
PROVIDERS: ADMIT Internal Medicine; ATTEND Internal Medicine
DX: N39.0 Urinary tract infection, site not specified (principal); R53.2 Functional quadriplegia; E46 Unspecified protein-calorie malnutrition; Z68.1 Body mass index [BMI] 19.9 or less, adult; C50.912 Malignant neoplasm of unspecified site of left female breast; R13.10 Dysphagia, unspecified; G30.9 Alzheimer's disease, unspecified; F02.80 Dementia in other diseases classified elsewhere, unspecified severity, without behavioral disturbance, psychotic disturbance, mood disturbance, and anxiety; I25.10 Atherosclerotic heart disease of native coronary artery without angina pectoris; M19.90 Unspecified osteoarthritis, unspecified site; I95.9 Hypotension, unspecified; I48.91 Unspecified atrial fibrillation; E03.9 Hypothyroidism, unspecified; Z86.73 Personal history of transient ischemic attack (TIA), and cerebral infarction without residual deficits
CPT/HCPCS: 36415-UA; 71045-TC; 80048-TC; 80053-TC; 81001-TC; 82140-TC; 82607-90; 82746-90; 82947-TC; 82948-90; 83036-90; 83735-TC; 83880-TC; 84443-TC; 84484-TC; 85025-TC; 85610-TC; 85730-TC; 87086-90; 93005; 94760; J0692; J1160; J2001; J2060; J3480; J7040; J7042; Z7610